=== PATIENT | female | born 1950 | race Caucasian/White ===

== ENCOUNTER → 2017-01-17 | Outpatient (CLI) | payer OTHER ==
[~2017-01-17] MED LIST: CALC500C70 PO; FLUT50SP22 NAE; FOLI1TAB7 PO; HYDR-5688 PO; LACT3000 PO; LEVA45AE INH; LEVO50TA6 PO; LOSA1TAB38 PO; METH2.5T PO; METO25TA3 PO; MTR600XX PO; PLMIN90 INH; PRED10TA PO
[2017-01-17 12:25] LABS: BASO % 0.2 %; BASO ABS # 0.01 K/uL (0-0.2); COMPLETE YES; HEMATOCRIT 38.9 % (37-47); IG% 0.3 %; LYMPH % 28.7 %; LYMPH ABS # 1.88 K/uL (1.2-3.4); MEAN CELL VOLUME 98.7 fL (80-100); MEAN CORPUSCULAR HGB CONC 34.4 g/dl (32-36); MEAN PLATELET VOLUME 9.3 fL (7.4-10.4); MONO % 9.8 %; PLATELET COUNT 364 K/uL (130-400); RED BLOOD COUNT 3.94 M/uL (4.2-5.4); WHITE BLOOD COUNT 6.56 K/uL (4.8-10.8)
[2017-01-17 13:12] LABS: ALT/SGPT 19 U/L (12-78); AST/SGOT 15 U/L (15-37); CREATININE 0.83 mg/dl (0.60-1.20)
[2017-01-17 13:15] LABS: ALKALINE PHOSPHATASE 66 U/L (45-117)
== END | disposition home or self-care (01) ==
LOC: C.LAB1850 11:18
PROVIDERS: ATTEND Internal Medicine Rheumatology
DX: Z51.81 Encounter for therapeutic drug level monitoring (principal); Z79.899 Other long term (current) drug therapy

== ENCOUNTER → 2017-01-19 | Outpatient (CLI) | payer OTHER ==
--- NOTE | 2017-01-19 13:03 | MAMMOGRAPHY REPORT ---
BILATERAL DIGITAL SCREENING MAMMOGRAM WITH CAD: 01/19/2017 CLINICAL HISTORY: Routine screening. Patient has no complaints. TECHNIQUE: Current study was also evaluated with a Computer Aided Detection (CAD) system. Bilatera l CC and MLO views were obtained. COMPARISON: Comparison is made to exams dated: 01/19/2016 mammogram, 01/18/2015 mammogram, 01/19/2014 christopher mogram, 01/19/2014 ultrasound, 01/15/2014 mammogram, and 07/22/2013 mammogram - [facility]. BREAST COMPOSITION: The tissue of both breasts is heterogeneously dense, which may obscure small ma sses. FINDINGS: No suspicious masses, calcifications, or areas of architectural distortion are noted in e ither breast. There has been no significant interval change compared to prior exams. IMPRESSION: ACR BI-RADS CATEGORY 1: NEGATIVE There is no mammographic evidence of malignancy. A 1 year screening mammogram is recommended. The p atient will receive written notification of the results. Approximately 10% of breast cancers are not detected with mammography. A negative mammographic repor t should not delay biopsy if a clinically suggestive mass is present. Isabelle Ying M.D. /:01/19/2017 12:24:28 Sld Inclusion Teacher: Jolie SIMMONS(Kerri)(Isha), [facility] letter sent: Normal 1/2 BI-RADS Code: ACR BI-RADS Category 1: Negative
== END | disposition home or self-care (01) ==
LOC: C.MAMM 09:06
PROVIDERS: ATTEND Obstetrics & Gynecology
DX: Z12.31 Encounter for screening mammogram for malignant neoplasm of breast (principal)

== ENCOUNTER → 2017-01-29 | Outpatient (CLI) | payer OTHER ==
--- NOTE | 2017-01-29 11:57 | DIAGNOSTIC IMAGING REPORT ---
CHEST 2 VIEWS ROUTINE HISTORY: Z20.1 Contact with or exposure to [id number] COMPARISON: Chest 03/16/2016. FINDINGS: The lungs are hyperexpanded with apical predominant emphysematous changes. The heart is normal in size. Slight prominence of interstitial markings which is likely chronic. No new focal lung consolidations. No evidence for pulmonary edema. No pleural effusions. No pneumothorax. IMPRESSION: Emphysema and mild interstitial thickening. No new focal lung consolidations to suggest pneumonia. Electronically signed by: Alban Hodges M.D. 01/29/2017 11:55 AM Dictated Date/Time: 01/29/2017 11:47 AM
== END | disposition home or self-care (01) ==
LOC: C.RAD1850 11:35
PROVIDERS: ATTEND Physician Assistant Medical
DX: Z20.1 Contact with and (suspected) exposure to tuberculosis (principal)

== ENCOUNTER → 2017-02-01 | Outpatient (CLI) | payer OTHER ==
[2017-02-05 15:15] LABS: QUANTIF TB AG-NIL 0.01 IU/ML; QUANTIFERON NIL 0.05 IU/ML
== END | disposition home or self-care (01) ==
LOC: C.LAB1850 14:37
PROVIDERS: ATTEND Physician Assistant Medical
DX: R05 Cough (principal)

== ENCOUNTER → 2017-02-16 | Outpatient (CLI) | payer OTHER ==
--- NOTE | 2017-02-16 08:43 | DIAGNOSTIC IMAGING REPORT ---
LEFT UPPER QUADRANT ULTRASOUND HISTORY: Left upper quadrant tenderness. COMPARISON: None. FINDINGS: The size of the spleen is normal, measuring 9.1 cm in maximal dimension. There is no perisplenic fluid. The left kidney is unremarkable. There is no left hydronephrosis. Sonography of the left upper quadrant at site of maximal pain demonstrated no abnormality. IMPRESSION: No sonographic abnormality within the left upper quadrant. Electronically signed by: Terrence Dominguez M.D. 02/16/2017 8:42 AM Dictated Date/Time: 02/16/2017 8:41 AM
== END | disposition home or self-care (01) ==
LOC: C.ULTR 08:08
PROVIDERS: ATTEND Internal Medicine
DX: R10.812 Left upper quadrant abdominal tenderness (principal)

== ENCOUNTER → 2017-03-16 | Outpatient (CLI) | payer OTHER ==
[2017-03-23 15:16] LABS: O&P SOURCE OTHER-STOOL
== END | disposition home or self-care (01) ==
LOC: C.LAB1850 15:17
PROVIDERS: ATTEND Internal Medicine
DX: R19.4 Change in bowel habit (principal)

== ENCOUNTER → 2017-03-27 | Outpatient (CLI) | payer OTHER | END | disposition home or self-care (01) | LOC: C.LAB1850 14:18 | PROVIDERS: ATTEND Internal Medicine Gastroenterology | DX: R19.7 Diarrhea, unspecified (principal) ==

== ENCOUNTER → 2017-04-19 | Day surgery (SDC) | payer OTHER ==
[2017-04-11 10:04] VITALS: Ht 163.8 cm; Wt 54.5 kg
[~2017-04-19] VITALS: Ht 163.8 cm; Wt 54.5 kg
[~2017-04-19] MED LIST changes: -HYDR-5688 PO; -LACT3000 PO; -PLMIN90 INH
[2017-04-19 11:55] VITALS: BP 156/102; PULSE 75; O2SAT 98
--- NOTE | 2017-04-20 15:41 | Procedure Note ---
Breath Hydrogen Test Interpretation Hydrogen Breath test is positive for lactose intolerance
== END | disposition home or self-care (01) ==
LOC: C.GI 08:01
PROVIDERS: ATTEND Internal Medicine Gastroenterology
DX: E73.9 Lactose intolerance, unspecified (principal)

== ENCOUNTER → 2017-05-22 | Outpatient (CLI) | payer OTHER ==
[2017-05-22 12:36] LABS: BASO % 0.1 %; BASO ABS # 0.01 K/uL (0-0.2); COMPLETE YES; HEMATOCRIT 39.8 % (37-47); IG% 0.4 %; LYMPH % 17.4 %; LYMPH ABS # 1.26 K/uL (1.2-3.4); MEAN CELL VOLUME 100.5 fL (80-100); MEAN CORPUSCULAR HEMOGLOBIN 33.6 pg (25-34); MEAN CORPUSCULAR HGB CONC 33.4 g/dl (32-36); MEAN PLATELET VOLUME 9.2 fL (7.4-10.4); MONO % 7.3 %; NEUT % 74.8 %; PLATELET COUNT 395 K/uL (130-400); RED BLOOD COUNT 3.96 M/uL (4.2-5.4); WHITE BLOOD COUNT 7.23 K/uL (4.8-10.8)
[2017-05-22 13:53] LABS: ALT/SGPT 22 U/L (12-78); AST/SGOT 19 U/L (15-37); BLOOD UREA NITROGEN 13 mg/dl (7-18); BUN/CREATININE RATIO 15.9 (10-20); CALCIUM 9.6 mg/dl (8.5-10.1); CARBON DIOXIDE 27 mmol/L (21-32); CHLORIDE 109 mmol/L (98-107); CHOLESTEROL 157 mg/dl (0-200); CHOLESTEROL/HDL RATIO 2.1; CREATININE 0.81 mg/dl (0.60-1.20); GLUCOSE 93 mg/dl (70-99); HDL CHOLESTEROL 75 mg/dl; POTASSIUM 4.9 mmol/L (3.5-5.1); SODIUM 142 mmol/L (136-145)
[2017-05-22 14:10] LABS: ALB/GLOB RATIO 0.9 (0.9-2); ALKALINE PHOSPHATASE 74 U/L (45-117); LDL CHOLESTEROL CALCULATED 71 mg/dl; TRIGLYCERIDES 53 mg/dl (0-150); VERY LOW DENSITY LIPOPROT CALC 11 mg/dl
[2017-05-23 16:44] LABS: ALBUMIN 3.8 G/DL (3.8-4.8); GAMMA GLOBULIN 1.1 G/DL (0.8-1.7); TOTAL PROTEIN 7.1 G/DL (6.2-8.3)
== END | disposition home or self-care (01) ==
LOC: C.LAB1850 10:36
PROVIDERS: ATTEND Internal Medicine Rheumatology
DX: M06.9 Rheumatoid arthritis, unspecified (principal); Z79.899 Other long term (current) drug therapy; Z79.1 Long term (current) use of non-steroidal anti-inflammatories (NSAID); E55.9 Vitamin D deficiency, unspecified; E03.9 Hypothyroidism, unspecified; R77.8 Other specified abnormalities of plasma proteins

== ENCOUNTER → 2017-07-13 | Outpatient (CLI) | payer OTHER | END | disposition home or self-care (01) | LOC: C.PAPS 09:45 | PROVIDERS: ATTEND Obstetrics & Gynecology | DX: Z12.4 Encounter for screening for malignant neoplasm of cervix (principal) ==

== ENCOUNTER → 2017-07-25 | Outpatient (CLI) | payer OTHER | END | disposition home or self-care (01) | LOC: C.LAB1850 10:43 | PROVIDERS: ATTEND Obstetrics & Gynecology | DX: N83.299 Other ovarian cyst, unspecified side (principal) ==

== ENCOUNTER 2017-08-31 09:29 | Day surgery (SDC) | payer OTHER ==
[2017-08-23 13:57] VITALS: BMI 21.0
--- NOTE | 2017-08-23 14:48 | PAT Medication Instructions ---
Service Date Aug 23, 2017. Current Home Medication List Budesonide (Pulmicort Flexhaler), 2 PUFF INH DAILY PRN for SOB/Wheezing Calcium/Vitamin D (Os-Loco 500 Plus D), 1 TAB PO QPM Fluticasone Propionate (Nasal) ([facility] Fluticasone Propriona), 1 SPRAY RAMILA DAILY PRN for PRN Folic Acid (Folvite), 1 MG PO QAM Ibuprofen (Ibuprofen), 1 TAB PO TID PRN for Pain Lactase (Lactaid), 3 TAB PO DAILY PRN for Diarrhea Levalbuterol Tartrate (Levalbuterol Tartrate Hfa), 2 PUFF INH QID PRN for Shortness of Breath Levalbuterol Tartrate (Levalbuterol Tartrate Hfa), 2 PUFF INH DAILY PRN for SOB/ Wheezing Levothyroxine Sodium (Levothyroxine Sodium), 1 TAB PO QAM Losartan Potassium (Cozaar), 100 MG PO QAM Methotrexate (Methotrexate), 5 MG PO WK Metoprolol Succ (Toprol Xl) (Toprol-Xl), 25 MG PO QAM Prednisone Tab (Prednisone), 10 MG PO DIRECTED PRN for ARTHRITIC PAIN Medication Instructions For Your Scheduled Surgery - Check with residential insurance inspector for instructions: Methotrexate (Methotrexate), 5 MG PO WK - Check with surgeon for instructions: Ibuprofen (Ibuprofen), 1 TAB PO TID PRN for Pain - Hold the following medications the morning of surgery: Losartan Potassium (Cozaar), 100 MG PO QAM Lactase (Lactaid), 3 TAB PO DAILY PRN for Diarrhea Folic Acid (Folvite), 1 MG PO QAM Calcium/Vitamin D (Os-Loco 500 Plus D), 1 TAB PO QPM - Take the following medications the morning of surgery with a sip of water: Prednisone Tab (Prednisone), 10 MG PO DIRECTED PRN for ARTHRITIC PAIN (if needed) Metoprolol Succ (Toprol Xl) (Toprol-Xl), 25 MG PO QAM Levothyroxine Sodium (Levothyroxine Sodium), 1 TAB PO QAM Levalbuterol Tartrate (Levalbuterol Tartrate Hfa), 2 PUFF INH QID PRN for Shortness of Breath (if needed) Levalbuterol Tartrate (Levalbuterol Tartrate Hfa), 2 PUFF INH DAILY PRN for SOB/ Wheezing (if needed) Fluticasone Propionate (Nasal) ([facility]vs Fluticasone Propriona), 1 SPRAY RAMILA DAILY PRN for PRN (if needed) Budesonide (Pulmicort Flexhaler), 2 PUFF INH DAILY PRN for SOB/Wheezing (if needed) - Take the following medications as scheduled the night before surgery: Levalbuterol Tartrate (Levalbuterol Tartrate Hfa), 2 PUFF INH QID PRN for Shortness of Breath (if needed) Levalbuterol Tartrate (Levalbuterol Tartrate Hfa), 2 PUFF INH DAILY PRN for SOB/ Wheezing (if needed) Lactase (Lactaid), 3 TAB PO DAILY PRN for Diarrhea (if needed) Fluticasone Propionate (Nasal) ([facility]vs Fluticasone Propriona), 1 SPRAY RAMILA DAILY PRN for PRN. (if needed) Budesonide (Pulmicort Flexhaler), 2 PUFF INH DAILY PRN for SOB/Wheezing (if needed) If you have any questions please call us at [phone] or [phone] or [phone]
--- NOTE | 2017-08-23 15:58 | DIAGNOSTIC IMAGING REPORT ---
TWO VIEW CHEST CLINICAL HISTORY: Preoperative examination. FINDINGS: PA and lateral chest radiographs are compared to study dated 01/29/2017. The cardiomediastinal silhouette is unremarkable. There is atherosclerotic calcification of the thoracic aorta. Emphysema and chronic interstitial thickening are similar to previous. Thoracic atelectasis versus scarring are present in the right upper lung. No airspace consolidation or pleural effusion is seen. Apical scarring is observed. There is no pneumothorax. The skeletal structures are osteopenic. The bony thorax appears intact. IMPRESSION: Emphysema with no active disease in the chest. Electronically signed by: Addison Blue M.D. 08/23/2017 3:57 PM Dictated Date/Time: 08/23/2017 3:56 PM
[2017-08-23 16:04] LABS: BASO % 0.3 %; BASO ABS # 0.02 K/uL (0-0.2); COMPLETE YES; HEMATOCRIT 40.4 % (37-47); IG% 0.3 %; LYMPH % 23.5 %; LYMPH ABS # 1.62 K/uL (1.2-3.4); MEAN CELL VOLUME 99.5 fL (80-100); MEAN CORPUSCULAR HEMOGLOBIN 33.7 pg (25-34); MEAN CORPUSCULAR HGB CONC 33.9 g/dl (32-36); MEAN PLATELET VOLUME 9.5 fL (7.4-10.4); NEUT % 67.9 %; PLATELET COUNT 326 K/uL (130-400); RED BLOOD COUNT 4.06 M/uL (4.2-5.4)
[2017-08-23 16:21] LABS: BUN/CREATININE RATIO 20.5 (10-20); CALCIUM 9.3 mg/dl (8.5-10.1); CREATININE 0.81 mg/dl (0.60-1.20); POTASSIUM 4.7 mmol/L (3.5-5.1)
--- NOTE | 2017-08-23 16:47 | DIAGNOSTIC IMAGING REPORT ---
CERVICAL SPINE 3 VIEWS CLINICAL HISTORY: Preoperative examination. Rheumatoid arthritis. FINDINGS: Lateral views of the neck in flexion, extension, and the neutral position are obtained. No prior studies are available for comparison at the time of dictation. The skeletal structures are osteopenic. There is no radiographic evidence of fracture on these sagittal views. Vertebral body height is maintained throughout the cervical spine. There is 3 mm of anterolisthesis at C2-C3. Mild retrolisthesis is seen at C3-C4, C4-C5, and C5-C6. This measures up to 4 mm. There is straightening of the cervical lordosis with reversal centered at C4. Arthritic change is seen at the atlantodental articulation. The spinolaminar line appears maintained. There is no significant inducible subluxation on the flexion/extension views. Qskpoywb-tn-fxbzsnli disc space narrowing is seen at C3-C4, C4-C5, and C5-C6 with associated endplate sclerosis. Large posterior disc osteophyte complex is at these levels likely contribute to acquired compromise of the central canal. The spinous processes appear intact. The prevertebral soft tissues are within normal limits. IMPRESSION: 1. Osteopenia with advanced spondylotic change as above. 2. No worsening bony subluxation was suggested on the flexion/extension views. 3. There is no evidence of fracture on these lateral images. Dictated: 08/23/2017 4:40 PM Transcribed: 08/23/2017 4:47 PM Tarik Electronically signed by: Addison Blue M.D. 08/23/2017 4:47 PM Dictated Date/Time: 08/23/2017 4:40 PM
[~2017-08-31] VITALS: Ht 163.8 cm; Wt 55.6 kg
[~2017-08-31 09:29] MED LIST changes: +LACT3000 PO; +LACTATED RINGER'S 1000ML 1,000 ML IV SCH; +PLMIN90 INH
[2017-08-31 10:20] VITALS: BP 141/95; PULSE 89; TEMP 36.8; O2SAT 98; Ht 163.8 cm; Wt 55.6 kg
--- NOTE | 2017-08-31 10:54 | History & Physical Bridge Note ---
H&P Re-Evaluation Bridge Note: I have examined the patient, reviewed the History & Physical and in the interval since the performance of the History & Physical I have noted the following changes of clinical significance: No changes noted
[2017-08-31] MEDS ORDERED: PROPOFOL IV EMULSION 10 MG/ML 20 ML VIAL IV ONE (10:56)
[2017-08-31] MEDS ORDERED: FENTANYL CITRATE INJ 50 MCG/1 ML 2 ML VIAL ONE ×2 (10:56→12:04)
[2017-08-31] MEDS ORDERED: GLYCOPYRROLATE INJ 0.2 MG/ML VIAL ONE (10:56)
[2017-08-31] MEDS ORDERED: DEXAMETHASONE SOD INJ 4 MG/ML VIAL ONE (10:56)
[2017-08-31] MEDS ORDERED: ONDANSETRON INJ 2 MG/ML 2 ML VIAL ONE (10:56)
[2017-08-31] MEDS ORDERED: HYDR-5688 PO (10:56)
[2017-08-31] MEDS ORDERED: NEOSTIGMINE METHYLSULFATE 5 MG/5 ML SYR ONE (10:56)
[2017-08-31] MEDS ORDERED: LIDOCAINE HCL 2% 2 ML VIAL (20MG/ML) ONE (10:56)
--- NOTE | 2017-08-31 10:57 | Discharge Instructions ---
Discharge Instructions Date of Service Aug 31, 2017. Visit Reason for Visit: Complex Ovarian Cyst Discharge Discharge Diagnosis / Problem: Left ovarian cyst Discharge Goals Goal(s): Specific goals Activity Recommendations Activity Limitations: per Instructions/Follow-up section Anesthesia . Post Anesthesia Instructions: If you have had General Anesthesia or IV Sedation: * Do not drive today. * Resume driving when surgeon permits. * Do not make important decisions or sign legal documents today. * Call surgeon for: 1. Temperature elevations greater than 101 degrees F. 2. Uncontrollable pain. 3. Excessive bleeding. 4. Persistent nausea and vomiting. 5. Medication intolerance (nausea, vomiting or rash). * For nausea and vomiting use only clear liquids such as: tea, soda, bouillon until nausea subsides, then gradually increase diet as tolerated. * If you have any concerns or questions, call your surgeon's office. If physician is unavailable and it is an emergency, call 911 or go to the nearest emergency room. . Instructions / Follow-Up Instructions / Follow-Up ACTIVITY RECOMMENDATIONS: * Rest the first 2-3 days. You should be back to your normal activity levels by day 3. * No heavy lifting for 2 weeks. * No intercourse, tampons or douching for 1-2 weeks. * You may shower the next day. * Do not drive anytime that you are taking narcotic pain medicines. RETURN TO SCHOOL/WORK: * May return to school or work after 2-3 days. DIET: Nausea may occur in the immediate post-operative period. If so, take clear liquids such as tea, bouillon, apple juice until all nausea has subsided, then resume usual diet. MEDICATIONS: Resume previous medications unless instructed otherwise by your surgeon. Ibuprofen 200mg 2-3 tablets every 4-6 hours as needed -- OR -- Aleve 2 tablets every 8-12 hours as needed for post-operative discomfort Medications are over the counter. Tylenol may be used if above medications are contraindicated or not preferred. Medication should be taken with food or milk. Do not take on an empty stomach. SPECIAL CARE INSTRUCTIONS: * Check temperature twice daily for one week. report any elevation over 101 degrees. * You may experience some vagina spotting and/or bleeding. This is normal for 1 -2 weeks and should not be heavier than a normal period. If it is unusual in amount, call your physician. * Post-operative discomfort may consist of a sore throat, a "bloated" feeling and pain in the shoulders. these are normal symptoms, which usually only last for 2-3 days. * Remove band-aids tomorrow and shower. There is no need to replace band-aids unless there is drainage or discomfort. FOLLOW UP VISIT: Call your doctor's office for a post-operative 2 week visit if not already scheduled. Diet Recommendations Recommended Home Diet: resume previous diet Pending Studies Studies pending at discharge: no Medical Emergencies . Who to Call and When: Medical Emergencies: If at any time you feel your situation is an emergency, please call 911 immediately. . Non-Emergent Contact Non-Emergency issues call your: Primary Care Provider . . "Provider Documentation" section prepared by Flaquita Maier. . [place] Drug Monitoring Program Search Results: patient reviewed within database, no issues identified
[2017-08-31] MEDS ORDERED: SODIUM CHLORIDE 0.9% 1000ML 1,000 ML IV SCH (11:13)
[2017-08-31] MEDS ORDERED: ATROPINE SULFATE 0.1 MG/ML 5ML SYR IV PRN ×2 (11:15)
[2017-08-31] MEDS ORDERED: IBUPROFEN 600 MG TAB PO PRN (11:15)
[2017-08-31] MEDS ORDERED: HYDROCODONE/ACETAMOPHEN 5/325MG TAB PO PRN ×2 (11:15)
[2017-08-31] MEDS ORDERED: MEPERIDINE HCL 25 MG/ML CARP IV PRN (11:15)
[2017-08-31] MEDS ORDERED: EpHEDrine SULFATE INJ 50 MG/ML AMP IV PRN ×2 (11:15)
[2017-08-31] MEDS ORDERED: LABETALOL HCL IV 5 MG/ML 20ML IV PRN ×2 (11:15)
[2017-08-31] MEDS ORDERED: KETOROLAC TROMETHAMINE 30 MG/ML VIAL IV. PRN (11:15)
[2017-08-31] MEDS ORDERED: MoRPHine SULFATE 10 MG/ML CARP/VIAL IV PRN (11:15)
[2017-08-31] MEDS ORDERED: KETOROLAC TROMETHAMINE 15 MG/ML VIAL IV. PRN (11:15)
[2017-08-31] MEDS ORDERED: ONDANSETRON INJ 2 MG/ML 2 ML VIAL IV PRN ×3 (11:15)
[2017-08-31] MEDS ORDERED: METOCLOPRAMIDE HCL INJ 5 MG/ML 2 ML VIAL IV PRN (11:15)
[2017-08-31] MEDS ORDERED: DEXAMETHASONE SOD INJ 4 MG/ML VIAL IV PRN (11:15)
[2017-08-31] MEDS ORDERED: PROMETHAZINE HCL INJ 25 MG in SODIUM CHLORIDE 0.9% 50ML 50 ML IV PRN (11:15)
[2017-08-31] MEDS ORDERED: PHENYLEPHRINE 100MCG/ML 5ML SYR IV PRN (11:15)
[2017-08-31] MEDS ORDERED: FENTANYL CITRATE INJ 50 MCG/1 ML 2 ML VIAL IV PRN ×2 (11:15)
[2017-08-31] MEDS ORDERED: HYDROmorphone INJ 1 MG/ML SYR IV PRN (11:15)
[2017-08-31] MEDS ORDERED: ROCURONIUM BROMIDE 10 MG/ML 5 ML VIAL IV ONE (12:07)
[2017-08-31] MEDS ORDERED: METHYLENE BLUE 0.5% 10 ML VIAL ONE (13:02)
--- NOTE | 2017-08-31 13:56 | [facility] Post Operative Brief Note ---
Immediate Operative Summary Operative Date Aug 31, 2017. Pre-Operative Diagnosis Complex left ovarian cyst Post-Operative Diagnosis Complex left ovarian cyst, severe pelvic adhesive disease, distortion of anatomy, dilation of ureter on L Procedure(s) Performed DaVinci robot assisted left laparoscopic salpingo-oophorectomy, lysis of adhesion, and cystoscopy Surgeon Dr. Flaquita Maier Broomcorn Seeder Surgeon(s) Dr. Irlanda Santos Estimated Blood Loss 10 ml Findings Severe adhesive disease, dilation of L ureter, mild enlargement of L ovary Specimens A: Left fallopian tube and left ovary Complication(s) None Disposition Recovery Room / PACU
--- NOTE | 2017-08-31 14:22 | Anesthesiology Progress Note ---
Anesthesia Post Op Note Date & Time Aug 31, 2017 at 14:22 Vital Signs Pain Intensity: 5 Vital Signs Past 12 Hours Date Time Temp Pulse Resp B/P (MAP) Pulse Ox O2 Delivery O2 Flow Rate FiO2 08/31/17 14:15 61 14 156/83 97 Room Air 08/31/17 14:05 56 14 159/77 100 Oxymask 3 08/31/17 13:55 69 16 144/75 100 Oxymask 5 08/31/17 13:47 36.1 61 16 173/105 100 Oxymask 10 08/31/17 10:20 36.8 89 18 141/95 (110) 98 Room Air Notes Mental Status: alert / awake / arousable, participated in evaluation Pt Amnestic to Procedure: Yes Nausea / Vomiting: adequately controlled Pain: adequately controlled Airway Patency, RR, SpO2: stable & adequate BP & HR: stable & adequate Hydration State: stable & adequate Anesthetic Complications: no major complications apparent
[2017-08-31 14:26] VITALS: BP 148/98; PULSE 54; TEMP 36.4; O2SAT 98
[2017-08-31 14:56] VITALS: BP 156/82; PULSE 65; O2SAT 98
[2017-08-31 15:26] VITALS: BP 140/80; PULSE 68; TEMP 36.4; O2SAT 99
--- NOTE | 2017-08-31 16:24 | OPERATIVE REPORT ---
DATE OF OPERATION: 08/31/2017 PREOPERATIVE DIAGNOSIS: Complex left ovarian cyst. POSTOPERATIVE DIAGNOSIS: Same. PROCEDURE: Robotic LSO, lysis of adhesions and cystoscopy. SURGEON: Flaquita Maier MD TRIMMING MACHINE OPERATOR: Christian Santos MD ESTIMATED BLOOD LOSS: 10 mL. FINDINGS: Severe adhesive disease throughout the pelvis with distortion of pelvic anatomy, dilation of the left ureter, and mild enlargement of the left ovary. SPECIMENS: Left fallopian tube and ovary. COMPLICATIONS: None. DISPOSITION: Stable to the recovery room. DESCRIPTION: Henrietta is a 66-year-old female with chronic pelvic pain, left worse than right; and findings of an enlarged left ovary with a vascular nodule inside the ovary, notably her CA-125 was normal at 19. The patient wished removal of the left tube and ovary. Additionally, she had encouraged me on several occasions prior to surgery to remove the right tube and ovary as well as she was very concerned about whether there was any benefit to keeping these and particularly whether she might have cancer despite reassurances that, that was unlikely. She was placed on the table in the dorsal lithotomy position with Yellofins stirrups, prepped and draped in standard sterile fashion and a hard time-out was taken prior to proceeding. A Grey catheter was placed along with a single-tooth tenaculum on the cervix as well as an acorn uterine manipulator. Attention was then turned to the abdomen where an optical entry was made just beneath the umbilicus. The abdomen was then insufflated without complication. Right and left lower quadrant ports were then placed under direct visualization. With patient in steep Trendelenburg, it was possible to visualize the pelvic organs after the bowel had been swept away. Of note, the sigmoid was densely adherent over top of the left adnexal structures and this had to be dissected away from the pelvic wall in order to reveal the left tube, ovary and infundibulopelvic ligament as well as the left ureter as it coursed over the pelvic brim. Of note, both ovaries were densely adherent to the pelvic wall. The right ovary was so effaced as to be difficult to separate from the surrounding structures. The left tube was somewhat dilated and also the fimbriated end was trapped in a pocket by adhesive disease such that the fimbriae were actually located between the ovary and the pelvic sidewall and encased in a pocket of adhesive disease. The uterus itself was retroflexed and scarred into the cul-de-sac, making it difficult to elevate the uterus away from the rectum and the rectovaginal pouch of Vicente was nearly obliterated. I called Dr. Santos and asked that he come to the operating room to render an opinion before proceeding with the case any further. My suspicion for malignancy on the left ovary remains low as there were no lesions on the pelvic organs or bowel to suggest metastasis. A survey of the upper abdomen also revealed somewhat thickened appearance of the liver capsule, but no obvious masses in either the right or left upper quadrants. I had concerns about the risk of injury with proceeding with surgery at the same time, I was concerned that the scarring in the pelvis was the cause of patient's generalized pelvic pain and questioning whether removing the left tube and ovary is likely to truly treat her discomfort. Ultimately, we felt that it was best to remove the left ovary given the nodule known to be inside of it, if at all possible. However, deferred removing the right tube, ovary, uterus and cervix; given the extraordinary likelihood of intra-abdominal injury if any approach was made to those at this time. I began by further mobilizing the sigmoid colon to allow the best possible visualization of the IP ligament and the ureter. Unfortunately, the left ureter was grossly dilated and fairly tortuous in its course along the pelvic sidewall, it was noted to be extremely near, in fact butting up against the infundibulopelvic ligament at its point of entry into the pelvis. Additionally, the rectum needed to be freed from the left pelvic sidewall to some degree to allow visualization of the uteroovarian ligament and cornual attachment of the fallopian tube such that these could be ligated and divided. Once the bowel had been sufficiently mobilized away, I decided that the safest place to begin dissection would be to enter the retroperitoneum in the window between the left round ligament and left ovary. A slit was made in the peritoneum and this was opened using a blunt sweeping motion parallel to the adnexa, dissecting downward along the medial leaflet of the broad ligament to reach the dilated ureter which was then seemed to be peristalsing. The infundibulopelvic ligament was resting against the ureter at its point of origin on the pelvic sidewall. Therefore, it had to be grasped, ligated and then divided relatively close to the ovary. Once this was safely accomplished, dissection proceeded beneath the ovary to free it from the pelvic sidewall superior to the course of the ureter at all times and being careful to avoid the lateral pelvic sidewall structures. The fallopian tube was freed in a similar manner. The uteroovarian ligament was then ligated and divided and the fallopian tube was ligated and divided from the uterine cornu. The tube and ovary together were placed in the right portion of the anterior cul-de-sac. Suction irrigation was then used to see hemostasis. Because of some oozing from the pelvic sidewall pouch, an assistant manager quality management port was placed in the left upper quadrant through which a 4 x 4 x-ray sponge was then placed into the abdomen, this was used to apply gentle pressure to the pelvic sidewall, which did successfully stop the oozing. Observation was then undertaken until the ureter was seen to peristalse several times from the pelvic brim down to where it dives below the uterine artery nearing the bladder on the lower left pelvic sidewall. The sponge was then removed from the body. The robot was undocked and using traditional laparoscopy and an EndoCatch bag, the ovary and tube were removed from the body, entirely encased in a bag in fact the sample was relatively small and the bag was able to be extracted through the trocar without any spillage of contents or disruption of the bag. This having been accomplished, cystoscopy was then performed due to the nearness of the left ureter to our working site. A 2.5 mg of methylene blue were administered IV given Henrietta's age and relatively frail status, we started with a small dose. Unfortunately, 15 minutes of observation did not reveal blue dye in the urine. An additional 2.5 mg was given to match the usual 5 mg methylene blue dose. Several minutes thereafter, blue dye was consistently seen to be appearing in urine which was expressed through the left ureter as well as the right ureter by multiple members of staff in the operating room. Once this blue-tinged urine was seen to be consistently spilling, we felt confident the ureter was patent and working normally. The bladder was then drained. Attention was returned to the abdomen. After changing into fresh gloves, whereupon Tisseel was applied across the operative bed, although hemostasis was present prior to applying Tisseel given patient's again frail status, prolonged use of NSAIDs due to her rheumatoid arthritis and just generally out of an abundance of caution the Tisseel was applied. Once Tisseel had been applied to all the working sites, the instruments were all withdrawn. Gas was allowed to escape the abdomen and the belly was closed using UR-6 at the fascial level of the umbilicus and Dermabond dressing at all 4 skin sites. The patient was then awakened, which did go smoothly and she was transferred to the PACU. I did accompany patient to PACU and speak with her briefly there confirming that she was awake, comfortable and had tolerated her procedure well. I attest to the content of the Intraoperative Record and any orders documented therein. Any exception s are noted below.
== END 2017-08-31 16:51 | disposition home or self-care (01) ==
LOC: C.ACU 09:29
PROVIDERS: ATTEND Obstetrics & Gynecology
DX: N83.292 Other ovarian cyst, left side (principal); N73.6 Female pelvic peritoneal adhesions (postinfective); I47.1 Supraventricular tachycardia; I34.0 Nonrheumatic mitral (valve) insufficiency; I10 Essential (primary) hypertension; I73.00 Raynaud's syndrome without gangrene; E03.9 Hypothyroidism, unspecified; J38.00 Paralysis of vocal cords and larynx, unspecified; J45.909 Unspecified asthma, uncomplicated; E73.9 Lactose intolerance, unspecified; E61.8 Deficiency of other specified nutrient elements; E55.9 Vitamin D deficiency, unspecified; R91.8 Other nonspecific abnormal finding of lung field; M06.9 Rheumatoid arthritis, unspecified; M85.80 Other specified disorders of bone density and structure, unspecified site; Z79.1 Long term (current) use of non-steroidal anti-inflammatories (NSAID); Z79.899 Other long term (current) drug therapy
CPT/HCPCS: 58661; S2900

== ENCOUNTER → 2018-01-14 | Outpatient (CLI) | payer OTHER ==
[~2018-01-14] MED LIST changes: -FOLI1TAB7 PO; +FOLI1TAB8 PO; +HYDR-5688 PO; -LACTATED RINGER'S 1000ML 1,000 ML IV SCH
[2018-01-14 16:35] LABS: BASO % 0.3 %; BASO ABS # 0.03 K/uL (0-0.2); HEMATOCRIT 39.4 % (37-47); HEMOGLOBIN 13.3 g/dL (12.0-16.0); IG# 0.01 K/uL (0.00-0.02); LYMPH ABS # 2.24 K/uL (1.2-3.4); MEAN CELL VOLUME 99.5 fL (80-100); MEAN CORPUSCULAR HEMOGLOBIN 33.6 pg (25-34); MEAN CORPUSCULAR HGB CONC 33.8 g/dl (32-36); MEAN PLATELET VOLUME 9.3 fL (7.4-10.4); MONO % 6.5 %; MONO ABS # 0.56 K/uL (0.11-0.59); NEUT % 67.1 %; NEUT ABS # 5.78 K/uL (1.4-6.5); PLATELET COUNT 388 K/uL (130-400); RED CELL DISTRIBUTION WIDTH CV 12.9 % (11.5-14.5); RED CELL DISTRIBUTION WIDTH SD 46.9 fL (36.4-46.3); WHITE BLOOD COUNT 8.62 K/uL (4.8-10.8)
[2018-01-14 17:10] LABS: ALBUMIN 3.8 gm/dl (3.4-5.0); ALT/SGPT 19 U/L (12-78); CREATININE 0.91 mg/dl (0.60-1.20)
[2018-01-14 17:12] LABS: ALKALINE PHOSPHATASE 79 U/L (45-117); AST/SGOT 20 U/L (15-37); TOTAL PROTEIN 7.9 gm/dl (6.4-8.2)
== END | disposition home or self-care (01) ==
LOC: C.LAB1850 15:20
PROVIDERS: ATTEND Internal Medicine Rheumatology
DX: M06.9 Rheumatoid arthritis, unspecified (principal)

== ENCOUNTER → 2018-01-22 | Outpatient (CLI) | payer OTHER ==
--- NOTE | 2018-01-22 15:25 | MAMMOGRAPHY REPORT ---
BILATERAL DIGITAL SCREENING MAMMOGRAM TOMOSYNTHESIS WITH CAD: 01/22/2018 CLINICAL HISTORY: Routine screening. Patient has no complaints. TECHNIQUE: Breast tomosynthesis in addition to standard 2D mammography was performed. Current study was also evaluated with a Computer Aided Detection (CAD) system. COMPARISON: Comparison is made to exams dated: 01/19/2017 mammogram, 01/19/2016 mammogram, 01/18/2015 mamm ogram, 01/19/2014 mammogram, 01/19/2014 ultrasound, and 07/22/2013 mammogram - [facility] BREAST COMPOSITION: The tissue of both breasts is heterogeneously dense, which may obscure small mas ses. FINDINGS: The parenchymal pattern is unchanged. No developing mass, architectural distortion or clus ter of suspicious microcalcifications is seen in either breast. IMPRESSION: ACR BI-RADS CATEGORY 2: BENIGN There is no mammographic evidence of malignancy. A 1 year screening mammogram is recommended. The pa tient will receive written notification of the results. Approximately 10% of breast cancers are not detected with mammography. A negative mammographic report should not delay biopsy if a clinically suggestive mass is present. Yuly Mai M.D. ay/:01/22/2018 14:12:57 Gang Punch Operator: Mala SIMMONS(Kerri)(Isha), [facility] letter sent: Normal 1/2 BI-RADS Code: ACR BI-RADS Category 2: Benign
== END | disposition home or self-care (01) ==
LOC: C.MAMM 09:38
PROVIDERS: ATTEND Obstetrics & Gynecology
DX: Z12.31 Encounter for screening mammogram for malignant neoplasm of breast (principal)

== ENCOUNTER 2018-03-01 10:58 | Emergency (ER) | payer OTHER ==
[~2018-03-01] VITALS: Ht 162.6 cm; Wt 55.0 kg
[2018-03-01 11:02] VITALS: TEMP 36.7; Ht 162.6 cm; Wt 55.0 kg
[2018-03-01 11:10] VITALS: O2SAT 97
[2018-03-01] MEDS ORDERED: SODIUM CHLORIDE 0.9% 1000ML 1,000 ML IV STA (11:16)
--- NOTE | 2018-03-01 11:24 | EMERGENCY ROOM VISIT NOTE ---
History Report prepared by Lakisha: Jose Benson Under the Supervision of: Dr. Demarco Farah M.D. First contact with patient: 11:05 Chief Complaint: TACHYCARDIA Stated Complaint: RAPID HEART RATE History of Present Illness The patient is a 67 year old female who presents to the Emergency Room with complaints of an episode of tachycardia beginning this morning. The patient states that she woke up this morning feeling tired. She notes that she then started feeling like her "heart was going to bounce out of her chest." She reports that she took her blood pressure because of her discomfort and noticed that her heart rate was 180. The patient states that her heart does not feel like it is currently racing. She notes that she had a similar episode two years ago caused by pneumonia. She reports that she was told that she was in SVT and was placed on metoprolol. She also complains of a cough and SOB beginning a week ago. The patient states that she thought that her cough was due to allergies, but notes that her cough is different than a cough one would get with an illness. She denies having a fever, congestion, and leg swelling. She reports that she has not been drinking a lot of fluids for the past week due to her cough. The patient states that she has a history of rheumatoid arthritis but does not have a history of heart attacks and blood clots. She notes that she has a family history of heart attacks at a young age. Source of History: patient Onset: this morning Position: chest Symptom Intensity: heart rate of 180 Quality: other (tachycardia) Timing: other (an episode) Associated Symptoms: + cough, + SOB, No fevers Note: The patient denies any congestion and leg swelling. Review of Systems See HPI for pertinent positives and negatives. A total of ten systems were reviewed and were otherwise negative. Past Medical & Surgical Medical Problems: (1) Pneumonia (2) Rheumatoid arthritis (3) SVT (supraventricular tachycardia) Family History FH: heart attack Social History Smoking Status: Never Smoker Marital Status: Housing Status: lives with family Occupation Status: retired Current/Historical Medications Scheduled Calcium/Vitamin D (Os-Loco 500 Plus D), 1 TAB PO QPM Folic Acid (Folvite), 1 MG PO QAM Levothyroxine Sodium (Levothyroxine Sodium), 1 TAB PO QAM Losartan Potassium (Cozaar), 100 MG PO QAM Methotrexate (Methotrexate), 5 MG PO WK Methylprednisolone (Medrol), 4 MG PO DIRECTED Metoprolol Succ (Toprol Xl) (Toprol-Xl), 25 MG PO QAM Scheduled PRN Budesonide (Pulmicort Flexhaler), 2 PUFF INH DAILY PRN for SOB/Wheezing Fluticasone Propionate (Nasal) (Cvs Fluticasone Propriona), 1 SPRAY RAMILA DAILY PRN for PRN Hydrocodone/Acetaminophen 5MG/325MG ([place] 5MG/325MG), 1 TABLET PO Q6H PRN for Pain Ibuprofen (Ibuprofen), 1 TAB PO TID PRN for Pain Lactase (Lactaid), 3 TAB PO DAILY PRN for Diarrhea Levalbuterol Tartrate (Levalbuterol Tartrate Hfa), 2 PUFF INH QID PRN for Shortness of Breath Allergies Coded Allergies: Penicillins (Verified Allergy, Severe, THROAT CLOSED-REQUIRED TRACH, ) Guaifenesin (Verified Allergy, Unknown, DIARRHEA, 03/01/18) Tramadol (Verified Adverse Reaction, Severe, LIGHTHEADEDNESS, GI, 03/01/18) Chlorhexidine (Verified Adverse Reaction, Intermediate, ITCHING, 03/01/18) Albuterol (Verified Adverse Reaction, Unknown, IRREGULAR HEARTBEAT, ) Dextromethorphan (Verified Adverse Reaction, Unknown, DIARRHEA, 03/01/18) Propoxyphene (Verified Adverse Reaction, Unknown, LIGHTHEADED, 03/01/18) Physical Exam Vital Signs Date Time Temp Pulse Resp B/P (MAP) Pulse Ox O2 Delivery O2 Flow Rate FiO2 03/01/18 14:00 61 16 117/68 95 Room Air 03/01/18 12:23 76 16 120/79 95 Room Air 03/01/18 12:18 77 03/01/18 11:32 77 16 122/81 95 Room Air 03/01/18 11:10 97 Room Air 03/01/18 11:10 97 Room Air 03/01/18 11:02 36.7 169 16 150/97 97 Room Air Physical Exam GENERAL: Awake, alert, fatigued appearing, in no distress HENT: Normocephalic, atraumatic. Mucous membranes dry otherwise oropharynx unremarkable. EYES: Normal conjunctiva. Sclera non-icteric. NECK: Supple. No nuchal rigidity. FROM. No JVD. RESPIRATORY: Clear to auscultation. CARDIAC: Regular rate, normal rhythm. Extremities warm and well perfused. Pulses equal. ABDOMEN: Soft, non-distended. No tenderness to palpation. No rebound or guarding. No masses. RECTAL: Deferred. MUSCULOSKELETAL: Chest examination reveals no tenderness. The back is symmetrical on inspection without obvious abnormality. There is no CVA tenderness to palpation. No joint edema. LOWER EXTREMITIES: Calves are equal size bilaterally and non-tender. No edema. No discoloration. NEURO: Normal sensorium. No sensory or motor deficits noted. SKIN: No rash or jaundice noted. Medical Decision & Procedures ER Provider Diagnostic Interpretation: Radiology results as stated below per my review and radiologist interpretation: CHEST ONE VIEW PORTABLE FINDINGS: The lungs are hyperexpanded with apical predominant emphysematous changes. No pneumothorax. No pleural effusions. Chronic interstitial thickening persists. No new focal lung consolidations to suggest pneumonia. Possible 2 cm nodular density within the right upper lobe. Interstitial thickening at the left lung base is likely chronic. IMPRESSION: 1. No focal lung consolidations to suggest pneumonia. 2. Possible 2 cm nodule within the right upper lobe. Follow-up nonemergent chest CT is recommended to exclude a pulmonary lesion. 3. Emphysema and chronic interstitial thickening persists. Electronically signed by: Alban Hodges M.D. 03/01/2018 12:04 PM Laboratory Results 03/01/18 11:14 Red Blood Count 3.97, Mean Corpuscular Volume 97.2, Mean Corpuscular Hemoglobin 34.3, Mean Corpuscular Hemoglobin Concent 35.2, Mean Platelet Volume 8.8, Neutrophils (%) (Auto) 72.4, Lymphocytes (%) (Auto) 19.0, Monocytes (%) (Auto) 8.0, Eosinophils (%) (Auto) 0.0, Basophils (%) (Auto) 0.2, Neutrophils # (Auto) 6.97, Lymphocytes # (Auto) 1.83, Monocytes # (Auto) 0.77, Eosinophils # (Auto) 0.00, Basophils # (Auto) 0.02 03/01/18 11:14 Test 03/01/18 11:14 White Blood Count 9.63 K/uL (4.8-10.8) Red Blood Count 3.97 M/uL (4.2-5.4) Hemoglobin 13.6 g/dL (12.0-16.0) Hematocrit 38.6 % (37-47) Mean Corpuscular Volume 97.2 fL (80-100) Mean Corpuscular Hemoglobin 34.3 pg (25-34) Mean Corpuscular Hemoglobin Concent 35.2 g/dl (32-36) Platelet Count 340 K/uL (130-400) Mean Platelet Volume 8.8 fL (7.4-10.4) Neutrophils (%) (Auto) 72.4 % Lymphocytes (%) (Auto) 19.0 % Monocytes (%) (Auto) 8.0 % Eosinophils (%) (Auto) 0.0 % Basophils (%) (Auto) 0.2 % Neutrophils # (Auto) 6.97 K/uL (1.4-6.5) Lymphocytes # (Auto) 1.83 K/uL (1.2-3.4) Monocytes # (Auto) 0.77 K/uL (0.11-0.59) Eosinophils # (Auto) 0.00 K/uL (0-0.5) Basophils # (Auto) 0.02 K/uL (0-0.2) RDW Standard Deviation 44.9 fL (36.4-46.3) RDW Coefficient of Variation 12.8 % (11.5-14.5) Immature Granulocyte % (Auto) 0.4 % Immature Granulocyte # (Auto) 0.04 K/uL (0.00-0.02) Anion Gap 6.0 mmol/L (3-11) Est Creatinine Clear Calc Drug Dose 57.6 ml/min Estimated GFR () 85.2 Estimated GFR (Non- 73.5 BUN/Creatinine Ratio 15.7 (10-20) Calcium Level 8.9 mg/dl (8.5-10.1) Phosphorus Level 2.5 mg/dl (2.5-4.9) Magnesium Level 1.7 mg/dl (1.8-2.4) Total Bilirubin 0.4 mg/dl (0.2-1) Direct Bilirubin < 0.1 mg/dl (0-0.2) Aspartate Amino Transf (AST/SGOT) 20 U/L (15-37) Alanine Aminotransferase (ALT/SGPT) 25 U/L (12-78) Alkaline Phosphatase 70 U/L (45-117) Total Protein 7.9 gm/dl (6.4-8.2) Albumin 3.4 gm/dl (3.4-5.0) Lipase 154 U/L (73-393) Thyroid Stimulating Hormone (TSH) 2.540 uIu/ml (0.300-4.500) Laboratory results reviewed by me Medications Administered Medications (Trade) Dose Ordered Sig/Keerthi Route Start Time Stop Time Status Last Admin Dose Admin Sodium Chloride 1,000 ml @ 999 mls/hr Q1H1M STAT IV 03/01/18 11:16 03/01/18 12:16 DC 03/01/18 11:32 999 MLS/HR Magnesium Sulfate (Magnesium Sulfate 1gm / D5W) 2 gm NOW STAT IV 03/01/18 12:35 03/01/18 12:36 DC 03/01/18 12:43 2 GM ECG Per My Interpretation Indication: tachycardia Rate (beats per minute): 160 Rhythm: SVT Findings: no acute ischemic change, other (Normal axis) Change: EKG #2: Normal sinus, 79, normal axis, no acute ischemia. ED Course 1114: The patient was evaluated in room C2. A complete history and physical exam was performed. 1306: I reevaluated the patient and she feels better. Discussed results and discharge instructions: She verbalized understanding and agreement. The patient is ready for discharge. Medical Decision I reviewed the patient's past medical history, medications, and the nursing notes as described above. Differential diagnosis: Etiologies such as premature contractions, electrolyte abnormality, cardiac dysrhythmia, thyroid dysfunction, pulmonary embolism, infection, gastrointestinal, as well as others were entertained. The patient is a 67 y/o woman with a pmhx of prior SVT on Lopressor who presents to the emergency department with episode of palpitations occurring since this morning found to be in SVT on arrival per HPI. On arrival patient was in SVT on EKG but spontaneously converted by the time she was taken back to her ED room and reported resolution of palpitations with subsequent EKG NSR without evidence of ischemia. Otherwise, patient does appear clinically dry and reports drinking less water recently since developing a dry cough with mild congestion 2/2 her seasonal allergies, given that her cough exacerbates her history of stress incontinence, causing her to leak. Magnesium of 1.7 and labs otherwise unremarkable. CXR negative. Patient feeling improved after IVF and magnesium repletion. Continue to remain in NSR throughout ED observation. Given SVT likely provoked by mild dehydration per patient's story, no indication to increase patient's metoprolol at this time. Plan for pcp f/u. Findings and plan for follow-up reviewed with patient. Patient agreeable and d/c'd per discharge instructions. Medication Reconcilliation Current Medication List: was personally reviewed by me Blood Pressure Screening Patient's blood pressure: Normal blood pressure Blood pressure disposition: Did not require urgent referral Impression Primary Impression: SVT (supraventricular tachycardia) Additional Impression: Hypomagnesemia Scribe Attestation The scribe's documentation has been prepared under my direction and personally reviewed by me in its entirety. I confirm that the note above accurately reflects all work, treatment, procedures, and medical decision making performed by me. Departure Information Dispostion Home / Self-Care Referrals RV. Harris MD (PCP) Forms HOME CARE DOCUMENTATION FORM, IMPORTANT VISIT INFORMATION, WORK / SCHOOL INSTRUCTIONS Patient Instructions My [facility], Understanding Supraventricular Tachycardia SVT Additional Instructions Please follow up with your primary care physician in the next 1-3 days for re- evaluation. Your episode of SVT was likely provoked by dehydration and low magnesium. However your SVT resolved without intervention. Otherwise, your exam, EKG, chest xray, and lab results did not show signs of an emergent condition at this time. Drink plenty of fluids to ensure hydration. Return to the emergency department for worsening symptoms as described in the accompanying instructions. Problem Qualifiers
[2018-03-01 11:31] LABS: BASO % 0.2 %; BASO ABS # 0.02 K/uL (0-0.2); HEMATOCRIT 38.6 % (37-47); HEMOGLOBIN 13.6 g/dL (12.0-16.0); IG# 0.04 K/uL (0.00-0.02); LYMPH ABS # 1.83 K/uL (1.2-3.4); MEAN CELL VOLUME 97.2 fL (80-100); MEAN CORPUSCULAR HEMOGLOBIN 34.3 pg (25-34); MEAN CORPUSCULAR HGB CONC 35.2 g/dl (32-36); MEAN PLATELET VOLUME 8.8 fL (7.4-10.4); MONO ABS # 0.77 K/uL (0.11-0.59); NEUT % 72.4 %; NEUT ABS # 6.97 K/uL (1.4-6.5); PLATELET COUNT 340 K/uL (130-400); RED CELL DISTRIBUTION WIDTH CV 12.8 % (11.5-14.5); RED CELL DISTRIBUTION WIDTH SD 44.9 fL (36.4-46.3); WHITE BLOOD COUNT 9.63 K/uL (4.8-10.8)
[2018-03-01 11:49] LABS: ALBUMIN 3.4 gm/dl (3.4-5.0); ALKALINE PHOSPHATASE 70 U/L (45-117); ALT/SGPT 25 U/L (12-78); AST/SGOT 20 U/L (15-37); BLOOD UREA NITROGEN 13 mg/dl (7-18); CALCIUM 8.9 mg/dl (8.5-10.1); CARBON DIOXIDE 28 mmol/L (21-32); CREATININE 0.83 mg/dl (0.60-1.20); GLUCOSE 148 mg/dl (70-99); LIPASE 154 U/L (73-393); PHOSPHORUS 2.5 mg/dl (2.5-4.9); SODIUM 137 mmol/L (136-145); TOTAL PROTEIN 7.9 gm/dl (6.4-8.2)
--- NOTE | 2018-03-01 12:06 | DIAGNOSTIC IMAGING REPORT ---
CHEST ONE VIEW PORTABLE HISTORY: Atypical chest pain. COMPARISON: Chest 08/23/2017. FINDINGS: The lungs are hyperexpanded with apical predominant emphysematous changes. No pneumothorax. No pleural effusions. Chronic interstitial thickening persists. No new focal lung consolidations to suggest pneumonia. Possible 2 cm nodular density within the right upper lobe. Interstitial thickening at the left lung base is likely chronic. IMPRESSION: 1. No focal lung consolidations to suggest pneumonia. 2. Possible 2 cm nodule within the right upper lobe. Follow-up nonemergent chest CT is recommended to exclude a pulmonary lesion. 3. Emphysema and chronic interstitial thickening persists. Electronically signed by: Alban Hodges M.D. 03/01/2018 12:04 PM Dictated Date/Time: 03/01/2018 12:02 PM
[2018-03-01] MEDS ORDERED: MAGNESIUM SULFATE 1GM / D5W 1 GM BAG IV STA (12:35)
[2018-03-01] MEDS ORDERED: METH4TAB31 PO (12:42)
[2018-03-01 14:00] VITALS: BP 117/68; PULSE 61; O2SAT 95
== END 2018-03-01 14:20 | disposition home or self-care (01) ==
LOC: C.EDB 10:59 → C.EDC 14:20
DX: I47.1 Supraventricular tachycardia (principal); E83.42 Hypomagnesemia; Z87.01 Personal history of pneumonia (recurrent); M06.9 Rheumatoid arthritis, unspecified; Z82.49 Family history of ischemic heart disease and other diseases of the circulatory system; Z79.899 Other long term (current) drug therapy; Z88.0 Allergy status to penicillin; Z88.8 Allergy status to other drugs, medicaments and biological substances

== ENCOUNTER → 2018-05-21 | Outpatient (CLI) | payer OTHER ==
[~2018-05-21] MED LIST changes: -HYDR-5688 PO; +METH4TAB31 PO; -PRED10TA PO
[2018-05-21 12:34] LABS: BASO % 0.3 %; BASO ABS # 0.02 K/uL (0-0.2); HEMATOCRIT 39.7 % (37-47); HEMOGLOBIN 13.3 g/dL (12.0-16.0); IG# 0.02 K/uL (0.00-0.02); LYMPH % 24.9 %; LYMPH ABS # 1.66 K/uL (1.2-3.4); MEAN CELL VOLUME 99.3 fL (80-100); MEAN CORPUSCULAR HEMOGLOBIN 33.3 pg (25-34); MEAN CORPUSCULAR HGB CONC 33.5 g/dl (32-36); MEAN PLATELET VOLUME 9.7 fL (7.4-10.4); MONO % 6.3 %; MONO ABS # 0.42 K/uL (0.11-0.59); NEUT % 68.2 %; NEUT ABS # 4.54 K/uL (1.4-6.5); PLATELET COUNT 360 K/uL (130-400); RED CELL DISTRIBUTION WIDTH CV 13.5 % (11.5-14.5); RED CELL DISTRIBUTION WIDTH SD 48.6 fL (36.4-46.3); WHITE BLOOD COUNT 6.66 K/uL (4.8-10.8)
[2018-05-21 13:56] LABS: ALBUMIN 3.9 gm/dl (3.4-5.0); ALKALINE PHOSPHATASE 69 U/L (45-117); ALT/SGPT 21 U/L (12-78); AST/SGOT 21 U/L (15-37); CHOLESTEROL 172 mg/dl (0-200); CREATININE 0.81 mg/dl (0.60-1.20); LDL CHOLESTEROL CALCULATED 69 mg/dl; TOTAL PROTEIN 8.1 gm/dl (6.4-8.2)
== END | disposition home or self-care (01) ==
LOC: C.LAB1850 11:23
PROVIDERS: ATTEND Internal Medicine
DX: E03.9 Hypothyroidism, unspecified (principal); I10 Essential (primary) hypertension; M06.9 Rheumatoid arthritis, unspecified; R29.898 Other symptoms and signs involving the musculoskeletal system; Z79.899 Other long term (current) drug therapy; M85.80 Other specified disorders of bone density and structure, unspecified site; E55.9 Vitamin D deficiency, unspecified; R77.8 Other specified abnormalities of plasma proteins

== ENCOUNTER 2018-05-29 10:26 | Inpatient (IN) | payer OTHER ==
[~2018-05-29] VITALS: Ht 162.6 cm; Wt 53.3 kg
[~2018-05-29 10:26] MED LIST changes: -METH4TAB31 PO
[2018-05-29] MEDS ORDERED: DILTIAZEM BOLUS / DRIP IV STA ×2 (10:43→11:34)
[2018-05-29] MEDS ORDERED: SODIUM CHLORIDE 0.9% 1000ML 1,000 ML IV STA (10:43)
[2018-05-29 10:52] LABS: BASO % 0.3 %; BASO ABS # 0.02 K/uL (0-0.2); HEMATOCRIT 41.4 % (37-47); HEMOGLOBIN 14.4 g/dL (12.0-16.0); IG# 0.02 K/uL (0.00-0.02); LYMPH % 19.3 %; LYMPH ABS # 1.45 K/uL (1.2-3.4); MEAN CELL VOLUME 97.9 fL (80-100); MEAN CORPUSCULAR HGB CONC 34.8 g/dl (32-36); MEAN PLATELET VOLUME 9.1 fL (7.4-10.4); MONO % 7.9 %; MONO ABS # 0.59 K/uL (0.11-0.59); NEUT % 72.2 %; NEUT ABS # 5.42 K/uL (1.4-6.5); PLATELET COUNT 374 K/uL (130-400); RED CELL DISTRIBUTION WIDTH CV 13.2 % (11.5-14.5); RED CELL DISTRIBUTION WIDTH SD 47.1 fL (36.4-46.3)
[2018-05-29] MEDS ORDERED: DILTIAZEM HCL INJ 125 MG in DEXTROSE 5% 100ML IV PRN (11:00)
[2018-05-29] MEDS ORDERED: DILTIAZEM BOLUS FROM BAG IV ONE (11:00)
--- NOTE | 2018-05-29 11:02 | DIAGNOSTIC IMAGING REPORT ---
SINGLE VIEW CHEST CLINICAL HISTORY: Atypical chest pain. FINDINGS: An AP, portable, upright chest radiograph is compared to study dated 03/01/2018 and correlated with chest CT dated 04/08/2018. The examination is degraded by portable technique and patient rotation. The cardiomediastinal silhouette is unremarkable noting atherosclerotic calcification of the thoracic aorta. The lungs are hyperinflated. Chronic interstitial thickening and nodularity is similar to previous. Developing airspace consolidation is identified at the left lung base. Mild bronchiectasis is noted at the lung bases. Apical scarring is observed. No large pleural effusion or pneumothorax is seen. The skeletal structures are osteopenic. The bony thorax is grossly intact. IMPRESSION: 1. There is developing airspace consolidation at the left lung base. Correlate clinically for evidence of pneumonia. Radiographic follow-up to resolution is recommended. 2. Chronic interstitial thickening and nodularity are similar to prior studies and likely represent a chronic infectious/inflammatory process. Electronically signed by: Addison Blue M.D. 05/29/2018 11:01 AM Dictated Date/Time: 05/29/2018 11:00 AM
[2018-05-29 11:21] LABS: BLOOD UREA NITROGEN 11 mg/dl (7-18); CALCIUM 9.1 mg/dl (8.5-10.1); CARBON DIOXIDE 26 mmol/L (21-32); CKMB < 1.0 ng/ml (0.5-3.6); CREATININE 0.94 mg/dl (0.60-1.20); GLUCOSE 141 mg/dl (70-99); POTASSIUM 3.5 mmol/L (3.5-5.1); SODIUM 135 mmol/L (136-145)
[2018-05-29] MEDS ORDERED: DOXY100C76 PO (11:38)
[2018-05-29] MEDS ORDERED: SPRIN INH (11:41)
[2018-05-29] MEDS ORDERED: POLYETHYLENE (MIRALAX) 17 GM PACK PO PRN (11:45)
[2018-05-29] MEDS ORDERED: MoRPHine SULFATE 2 MG/ML CARP IV PRN (11:45)
[2018-05-29] MEDS ORDERED: ONDANSETRON INJ 2 MG/ML 2 ML VIAL IV PRN (11:45)
[2018-05-29] MEDS ORDERED: ALUMINUM/MAGNESIUM/SIMETH (MAALOX MAX) 30 ML UDC PO PRN (11:45)
[2018-05-29] MEDS ORDERED: ACETAMINOPHEN 325 MG TAB PO PRN (11:45)
[2018-05-29] MEDS ORDERED: LEValbuterol HFA 15GM INHALER INH PRN (11:45)
[2018-05-29] MEDS ORDERED: BUDESONIDE 90 MCG INH INH PRN (11:45)
[2018-05-29] MEDS ORDERED: ZOLPIDEM TARTRATE 5 MG TAB PO PRN (11:45)
[2018-05-29] MEDS ORDERED: MAGNESIUM HYDROXIDE SUSP 30 ML UDC PO PRN (11:45)
[2018-05-29 11:57] VITALS: O2SAT 100; Ht 162.6 cm; Wt 53.3 kg
[2018-05-29] MEDS ORDERED: LEVOTHYROXINE 50 MCG TAB PO SCH (12:15)
--- NOTE | 2018-05-29 12:26 | History and Physical ---
History & Physical Date & Time of Service: May 29, 2018 at 12:05 Chief Complaint: Rapid Heart Beat,High Bp Primary Care Physician: No Doctor, Assigned History of Present Illness Source: patient, hospital records, other 67 y/o F Hx RA, rheumatoid lung disease, HTN, hypothyroid, 2 episodes of SVT ( 2015,2017). Developed a sore throat, congestion and felt generally unwell the past 3 days. On the day of admission she developed a racing HR and presented to the ER therefore. The pt denies CP, SOB or lightheadedness. AF with a rate of 140-150 was confirmed on arrival to the hospital. 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 She had called her skilled trades teacher 3 days ago at the onset of her symptoms and was placed on a course of Doxycycline. She states she was not able to tolerate the medication however and tended to vomit directly after taking it. Past Medical/Surgical History 1) HTN 2) RA 3) Rheumatoid lung disease 4) Hypothyroid 5) SVT x - 2017 and 02/2018 6) AF 05/2018 Family History FH: heart attack Mother due to [place] Father due to pancreatic CA Brother with AF Social History Drinks a glass of wine daily - no smoking history Smoking Status: Never Smoker Marital Status: Occupational Status: retired Allergies Coded Allergies: Penicillins (Verified Allergy, Severe, THROAT CLOSED-REQUIRED TRACH, ) Guaifenesin (Verified Allergy, Unknown, DIARRHEA, 05/29/18) Tramadol (Verified Adverse Reaction, Severe, LIGHTHEADEDNESS, GI, 05/29/18) Chlorhexidine (Verified Adverse Reaction, Intermediate, ITCHING, 05/29/18) Albuterol (Verified Adverse Reaction, Unknown, IRREGULAR HEARTBEAT, ) Dextromethorphan (Verified Adverse Reaction, Unknown, DIARRHEA, 05/29/18) Propoxyphene (Verified Adverse Reaction, Unknown, LIGHTHEADED, 05/29/18) Home Medications Scheduled Calcium/Vitamin D (Os-Loco 500 Plus D), 1 TAB PO QPM Doxycycline Monohydrate (Monodox), 200 MG PO BID Folic Acid (Folvite), 1 MG PO QAM Levothyroxine Sodium (Levothyroxine Sodium), 50 MCG PO QAM Losartan Potassium (Cozaar), 100 MG PO QAM Methotrexate (Methotrexate), 5 MG PO WK Metoprolol Succ (Toprol Xl) (Toprol-Xl), 25 MG PO QAM Scheduled PRN Fluticasone Propionate (Nasal) (Cvs Fluticasone Propriona), 1 SPRAY RAMILA DAILY PRN for PRN Ibuprofen (Ibuprofen), 600 MG PO TID PRN for Pain Methylprednisolone (Medrol), 4 MG PO DIRECTED PRN for PRN Tiotropium [place] (Spiriva Handihaler), 2 PUFF INH DAILY PRN for SOB/Wheezing Review of Systems Constitutional: No fever, No chills, No sweats Eyes: No worsening of vision ENT: + nasal symptoms, + sore throat, No hearing loss, No unusual epistaxis Respiratory: No cough, No sputum, No wheezing Cardiovascular: + palpitations, No chest pain, No orthopnea, No PND Abdomen: + nausea, + vomiting (After taking Doxycycline ), No pain Musculoskeletal: No joint pain Genitourinary - Female: No dysuria, No urinary frequency Neurologic: No memory loss, No paralysis, No weakness Psychiatric: No depression symptoms Endocrine: No fatigue Hematologic / Lymphatic: No abnormal bleeding/bruising Integumentary: No rash Physical Exam Vital Signs Date Time Temp Pulse Resp B/P (MAP) Pulse Ox O2 Delivery O2 Flow Rate FiO2 05/29/18 10:46 137 16 138/114 100 Room Air 05/29/18 10:46 130 05/29/18 10:43 98 Room Air 05/29/18 10:33 98 Room Air 05/29/18 10:28 36.3 142 20 153/107 96 Room Air General Appearance: WD/WN Head: normocephalic Eyes: normal inspection ENT: normal ENT inspection, pharynx normal Neck: supple, no JVD Respiratory/Chest: chest non-tender, lungs clear, normal breath sounds Cardiovascular: no edema, + irregularly irregular Abdomen/GI: normal bowel sounds, non tender, soft Back: normal inspection, no CVA tenderness Extremities/Musculoskelatal: normal inspection, no calf tenderness, normal capillary refill Neurologic/Psych: professor of fine art II-XII nml as tested, no motor/sensory deficits, alert, oriented x 3 Skin: normal color Diagnostics Laboratory Results Results Past 24 Hours Test 05/29/18 10:40 Range/Units White Blood Count 7.50 4.8-10.8 K/uL Red Blood Count 4.23 4.2-5.4 M/uL Hemoglobin 14.4 12.0-16.0 g/dL Hematocrit 41.4 37-47 % Mean Corpuscular Volume 97.9 80-100 fL Mean Corpuscular Hemoglobin 34.0 25-34 pg Mean Corpuscular Hemoglobin Concent 34.8 32-36 g/dl Platelet Count 374 130-400 K/uL Mean Platelet Volume 9.1 7.4-10.4 fL Neutrophils (%) (Auto) 72.2 % Lymphocytes (%) (Auto) 19.3 % Monocytes (%) (Auto) 7.9 % Eosinophils (%) (Auto) 0.0 % Basophils (%) (Auto) 0.3 % Neutrophils # (Auto) 5.42 1.4-6.5 K/uL Lymphocytes # (Auto) 1.45 1.2-3.4 K/uL Monocytes # (Auto) 0.59 0.11-0.59 K/uL Eosinophils # (Auto) 0.00 0-0.5 K/uL Basophils # (Auto) 0.02 0-0.2 K/uL RDW Standard Deviation 47.1 36.4-46.3 fL RDW Coefficient of Variation 13.2 11.5-14.5 % Immature Granulocyte % (Auto) 0.3 % Immature Granulocyte # (Auto) 0.02 0.00-0.02 K/uL Sodium Level 135 136-145 mmol/L Potassium Level 3.5 3.5-5.1 mmol/L Chloride Level 102 98-107 mmol/L Carbon Dioxide Level 26 21-32 mmol/L Anion Gap 7.0 3-11 mmol/L Blood Urea Nitrogen 11 7-18 mg/dl Creatinine 0.94 0.60-1.20 mg/dl Est Creatinine Clear Calc Drug Dose 50.3 ml/min Estimated GFR () 73.3 Estimated GFR (Non- 63.2 BUN/Creatinine Ratio 11.6 10-20 Random Glucose 141 70-99 mg/dl Calcium Level 9.1 8.5-10.1 mg/dl Total Creatine Kinase 48 26-192 U/L Creatine Kinase MB < 1.0 0.5-3.6 ng/ml Creatine Kinase MB Ratio 0-3.0 Troponin I < 0.015 0-0.045 ng/ml EKG AF/RVR 140BPM Impression Assessment and Plan 67 y/o F Hx RA, rheumatoid lung disease, HTN, hypothyroid, 2 episodes of SVT ( 2016,2018). Developed a sore throat, congestion and felt generally unwell the past 3 days. On the day of admission she developed a racing HR and presented to the ER therefore. The pt denies CP, SOB or lightheadedness. AF with a rate of 140-150 was confirmed on arrival to the hospital. 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 She had called her skilled trades teacher 3 days ago at the onset of her symptoms and was placed on a course of Doxycycline. She states she was not able to tolerate the medication however and tended to vomit directly after taking it. 1) AF - placed on Cardizem and BID Lovenox. We will obtain an echo which would evaluate for pulmonary HTN in context of her lung disease. A cardiology consult is requested to discuss long-term anticoagulation. A recent TSH is WNL. 2) HTN - we will cont daily Toprol as tolerated. Losartan has been held to allow for flexibility with rate agents. 3) Sore throat, congestion. No clear evidence of bacterial infection - she has not tolerated her Doxy. We will obtain a strep culture and can discuss alternate antibiotics with her MD upon DC if needed. 4) Hypothyroidism - cont Synthroid 5) RA - she takes MTX weekly so that presumably her lung disease is not related to use. Can f/u as outpt. Full code - Full-dose Lovenox Total time for this admit including review of labs, meds, imaging, records - discussion with pt and ER attending - 37 min Advanced Directives Existing Living Will: Yes Existing Power of Application Security Engineer: Yes Resuscitation Status VTE Prophylaxis Will order VTE Prophylaxis: Yes
[2018-05-29] MEDS ORDERED: METH4TAB31 PO (12:42)
[2018-05-29 13:10] VITALS: BP 132/89; PULSE 69; TEMP 36.4; O2SAT 97
[2018-05-29 14:36] LABS: PTT PATIENT 27.6 SECONDS (21.0-31.0)
[2018-05-29 14:50] VITALS: BP 129/80; PULSE 69; TEMP 37; O2SAT 96
[2018-05-29] MEDS: ENOXAPARIN 60 MG/0.6 ML SYR SQ SCH ×2 (15:18→23:08)
--- NOTE | 2018-05-29 16:49 | EMERGENCY ROOM VISIT NOTE ---
History Report prepared by Lakisha: Esther Andrews Under the Supervision of: Dr. Joshua Marino D.O. 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 She states that 3 days ago, she was in [place] and [facility] when she had a sudden onset of a feeling of "unwellness " and she lost her voice. She then began coughing and her ears became plugged. She called Dr. Dejesus [facility] yesterday and he placed her on Doxycycline. This morning, the patient states she woke up with a feeling of unwellness again so she took her blood pressure and it was 177 which concerned her so she came to the ED. She states she felt her heart racing this morning as well as a flutter but denies any chest pain. Pt states she has a history of pulmonary nodules and had a colonization staph infection in August. She has had SVT twice in the past and regularly takes Metoprolol. 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 A total of 10 systems reviewed and were otherwise negative. Past Medical & Surgical Medical Problems: (1) Pneumonia (2) Rapid atrial fibrillation (3) Rheumatoid arthritis (4) SVT (supraventricular tachycardia) Family History FH: heart attack Social History Smoking Status: Never Smoker Marital Status: Housing Status: lives with family Occupation Status: retired Current/Historical Medications Scheduled Calcium/Vitamin D (Os-Loco 500 Plus D), 1 TAB PO QPM Doxycycline Monohydrate (Monodox), 200 MG PO BID Folic Acid (Folvite), 1 MG PO QAM Levothyroxine Sodium (Levothyroxine Sodium), 50 MCG PO QAM Losartan Potassium (Cozaar), 100 MG PO QAM Methotrexate (Methotrexate), 5 MG PO WK Metoprolol Succ (Toprol Xl) (Toprol-Xl), 25 MG PO QAM Scheduled PRN Fluticasone Propionate (Nasal) (Cvs Fluticasone Propriona), 1 SPRAY RAMILA DAILY PRN for PRN Ibuprofen (Ibuprofen), 600 MG PO TID PRN for Pain Methylprednisolone (Medrol), 4 MG PO DIRECTED PRN for PRN Tiotropium [place] (Spiriva Handihaler), 2 PUFF INH DAILY PRN for SOB/Wheezing Allergies Coded Allergies: Penicillins (Verified Allergy, Severe, THROAT CLOSED-REQUIRED TRACH, ) Guaifenesin (Verified Allergy, Unknown, DIARRHEA, 05/29/18) Tramadol (Verified Adverse Reaction, Severe, LIGHTHEADEDNESS, GI, 05/29/18) Chlorhexidine (Verified Adverse Reaction, Intermediate, ITCHING, 05/29/18) Albuterol (Verified Adverse Reaction, Unknown, IRREGULAR HEARTBEAT, ) Dextromethorphan (Verified Adverse Reaction, Unknown, DIARRHEA, 05/29/18) Propoxyphene (Verified Adverse Reaction, Unknown, LIGHTHEADED, 05/29/18) Physical Exam Vital Signs Date Time Temp Pulse Resp B/P (MAP) Pulse Ox O2 Delivery O2 Flow Rate FiO2 05/29/18 10:46 137 16 138/114 100 Room Air 05/29/18 10:46 130 05/29/18 10:43 98 Room Air 05/29/18 10:33 98 Room Air 05/29/18 10:28 36.3 142 20 153/107 96 Room Air Physical Exam GENERAL: Sitting up in bed, alert, well appearing, well nourished, no distress, non-toxic EYE EXAM: normal conjunctiva. OROPHARYNX: no exudate, no erythema, lips, buccal mucosa, and tongue normal and mucous membranes are moist NECK: supple, no nuchal rigidity, no adenopathy, non-tender LUNGS: Clear to auscultation. Normal chest wall mechanics HEART: tachycardic and irregularly irregular, S1 normal and S2 normal ABDOMEN: abdomen soft, non-tender, normo-active bowel sounds, no masses, no rebound or guarding. BACK: Back is symmetrical on inspection and there is no deformity, no midline tenderness, no CVA tenderness. SKIN: no rashes and no bruising UPPER EXTREMITIES: upper extremities are grossly normal. LOWER EXTREMITIES: No pitting edema. NEURO EXAM: Normal sensorium, cranial nerves II-XII grossly intact, normal speech, no gross weakness of arms, no gross weakness of legs. Medical Decision & Procedures ER Provider Diagnostic Interpretation: Radiology results as stated below per my review and the radiologist's interpretation: SINGLE VIEW CHEST CLINICAL HISTORY: Atypical chest pain. FINDINGS: An AP, portable, upright chest radiograph is compared to study dated 03/01/2018 and correlated with chest CT dated 04/08/2018. The examination is degraded by portable technique and patient rotation. The cardiomediastinal silhouette is unremarkable noting atherosclerotic calcification of the thoracic aorta. The lungs are hyperinflated. Chronic interstitial thickening and nodularity is similar to previous. Developing airspace consolidation is identified at the left lung base. Mild bronchiectasis is noted at the lung bases. Apical scarring is observed. No large pleural effusion or pneumothorax is seen. The skeletal structures are osteopenic. The bony thorax is grossly intact. IMPRESSION: 1. There is developing airspace consolidation at the left lung base. Correlate clinically for evidence of pneumonia. Radiographic follow-up to resolution is recommended. 2. Chronic interstitial thickening and nodularity are similar to prior studies and likely represent a chronic infectious/inflammatory process. Electronically signed by: Addison Blue M.D. 05/29/2018 11:01 AM Laboratory Results 05/29/18 10:40 Red Blood Count 4.23, Mean Corpuscular Volume 97.9, Mean Corpuscular Hemoglobin 34.0, Mean Corpuscular Hemoglobin Concent 34.8, Mean Platelet Volume 9.1, Neutrophils (%) (Auto) 72.2, Lymphocytes (%) (Auto) 19.3, Monocytes (%) (Auto) 7.9, Eosinophils (%) (Auto) 0.0, Basophils (%) (Auto) 0.3, Neutrophils # (Auto) 5.42, Lymphocytes # (Auto) 1.45, Monocytes # (Auto) 0.59, Eosinophils # (Auto) 0.00, Basophils # (Auto) 0.02 05/29/18 10:40 Test 05/29/18 10:40 White Blood Count 7.50 K/uL (4.8-10.8) Red Blood Count 4.23 M/uL (4.2-5.4) Hemoglobin 14.4 g/dL (12.0-16.0) Hematocrit 41.4 % (37-47) Mean Corpuscular Volume 97.9 fL (80-100) Mean Corpuscular Hemoglobin 34.0 pg (25-34) Mean Corpuscular Hemoglobin Concent 34.8 g/dl (32-36) Platelet Count 374 K/uL (130-400) Mean Platelet Volume 9.1 fL (7.4-10.4) Neutrophils (%) (Auto) 72.2 % Lymphocytes (%) (Auto) 19.3 % Monocytes (%) (Auto) 7.9 % Eosinophils (%) (Auto) 0.0 % Basophils (%) (Auto) 0.3 % Neutrophils # (Auto) 5.42 K/uL (1.4-6.5) Lymphocytes # (Auto) 1.45 K/uL (1.2-3.4) Monocytes # (Auto) 0.59 K/uL (0.11-0.59) Eosinophils # (Auto) 0.00 K/uL (0-0.5) Basophils # (Auto) 0.02 K/uL (0-0.2) RDW Standard Deviation 47.1 fL (36.4-46.3) RDW Coefficient of Variation 13.2 % (11.5-14.5) Immature Granulocyte % (Auto) 0.3 % Immature Granulocyte # (Auto) 0.02 K/uL (0.00-0.02) Anion Gap 7.0 mmol/L (3-11) Est Creatinine Clear Calc Drug Dose 50.3 ml/min Estimated GFR () 73.3 Estimated GFR (Non- 63.2 BUN/Creatinine Ratio 11.6 (10-20) Calcium Level 9.1 mg/dl (8.5-10.1) Total Creatine Kinase 48 U/L (26-192) Creatine Kinase MB < 1.0 ng/ml (0.5-3.6) Creatine Kinase MB Ratio (0-3.0) Troponin I < 0.015 ng/ml (0-0.045) Hepatitis C Antibody Screen NEG (NEG) Laboratory results per my review. Medications Administered Medications (Trade) Dose Ordered Sig/Keerthi Route Start Time Stop Time Status Last Admin Dose Admin Sodium Chloride 1,000 ml @ 999 mls/hr Q1H1M STAT IV 05/29/18 10:43 05/29/18 11:43 DC 05/29/18 11:02 999 MLS/HR Diltiazem HCl 125 mg/Dextrose 125 ml @ 0 mls/hr Q0M PRN IV 05/29/18 11:00 06/28/18 10:59 05/29/18 11:01 5 MLS/HR Diltiazem HCl (Cardizem Bolus From Bag) 10 mg ONE ONCE IV 05/29/18 11:00 05/29/18 11:01 DC 05/29/18 11:01 10 MG ECG Per My Interpretation Indication: tachycardia Rate (beats per minute): 125 Rhythm: atrial fibrillation (with RVR) Findings: ST depression (Lateral), other (normal axis) ED Course ED COURSE: Vital signs were reviewed and showed Tachy and hypertensive situationally The patients medical record was reviewed The above diagnostic studies were performed and reviewed. ED treatments and interventions as stated above. 1034: The patient was evaluated in room C10. A complete history and physical examination was performed. 1043: Ordered Sodium Chloride 1000 ml @ 999 mls/hr IV 1100: Ordered Cardizem Bolus From Bag 10 mg IV, Diltiazem HCl 125 mg/Dextrose 1131: I reviewed the patient's case with Dr. Naylor, [facility] Hospitalist. He will evaluate the patient for further management. 1134: Upon reevaluation, the patient is resting comfortably. I discussed my findings with the patient and she understands and agrees with the treatment plan. Based on the patients age, coexisting illnesses, exam and lab findings the decision to treat as an inpatient was made. The patient remained stable while under my care. The patient will be evaluated for further management. Medical Decision Differential diagnoses includes but is not limited to acute coronary syndrome, myocardial infarction, pericarditis, pulmonary embolus, aortic dissection, pneumonia, pneumothorax, musculoskeletal, shingles, esophageal. Patient is a 67-year-old female who presents the ER for cough congestion and feeling very weak. She notes she has intermittently felt her heart racing. Upon arrival heart rate is in the 140s. EKG shows an atrial fib with RVR. There is ST depressions in the lateral leads. Patient was updated in regards to her findings at bedside. She does take a beta-jitendra intermittently at home secondary to SVT. CBC along with BMP and troponin were negative. Chest x- ray unremarkable. Patient was placed on the monitor upon arrival he was given a Cardizem bolus and placed on Cardizem drip. The drip was titrated up to 10. Heart rate remained from 110 to high 90s. Patient had no other complaints while in the ER. Discussed with the hospitalist patient was admitted for A. fib with RVR on a Cardizem drip. Medication Reconcilliation Current Medication List: was personally reviewed by me Blood Pressure Screening Patient's blood pressure: Elevated blood pressure Blood pressure disposition: Elevated BP felt to be situational Consults Time Called: 1129 Consulting Physician: Dr. Naylor [facility] Hospitalist Returned Call: 1131 I reviewed the patient's case with Dr. Naylor [facility] Hospitalist. He will evaluate the patient for further management. Impression Primary Impression: Atrial fibrillation with RVR Critical Care I have personally spent 35 minutes of critical care time in the direct management of this patient. This includes bedside care, interpretation of diagnostic studies, and testing, discussion with consultants, patient, and family members, and other required patient management activities. This 35 minutes is in excess of all separately billable procedures. Scribe Attestation The scribe's documentation has been prepared under my direction and personally reviewed by me in its entirety. I confirm that the note above accurately reflects all work, treatment, procedures, and medical decision making performed by me. Departure Information Dispostion Being Evaluated By Hospitalist (Dr. Naylor [facility] Hospitalist) Referrals RV. Harris MD (PCP) Patient Instructions My [facility]
--- NOTE | 2018-05-29 17:26 | ECHOCARDIOGRAM REPORT ---
*NOTICE TO RECEIVING DEMOCRAT AGENCY This information is strictly Confidential and protected under [place] law. [place] law prohibits you from making any further disclosure of this information unless further disclosure is expressly permitted by the written consent of the person to whom it pertains or is authorized by law. A general authorization for the release of medical or other information is not sufficient for this purpose. Hospital accepts no responsibility if the information is made available to any other person, INCLUDING THE PATIENT. Interpretation Summary * Name: TRINIDAD HARVEY Study Date: 05/29/2018 03:27 PM BP: 138/114 mmHg * Patient Location: C.2T\S\E218\S\1 HR: 137 * : 1950 (M/d/yyyy) Gender: Female Height: 64 in * Age: 67 yrs Ethnicity: [place] Weight: 119 lb * Ordering Physician: Jason Naylor * Referring Physician: Self, Referred * Performed By: Donita Barth RDCS * * Reason For Study: Palpitations * BSA: 1.6 m2 * -- Conclusions -- * Left ventricular systolic function is normal. * Normal diastolic function * Right ventricular systolic pressure is normal. Procedure Details * A complete two-dimensional transthoracic echocardiogram was performed (2D, M-mode, Doppler and color flow Doppler). Left Ventricle * The left ventricle is normal in size. * There is normal left ventricular wall thickness. * Ejection Fraction = 60-65%. * Left ventricular systolic function is normal. * Normal diastolic function * The left ventricular wall motion is normal. Right Ventricle * The right ventricle is normal in size and function. Atria * The left atrial size is normal. * Right atrial size is normal. Mitral Valve * The mitral valve leaflets appear normal. There is no evidence of stenosis, fluttering, or prolapse. * There is trace mitral regurgitation. Tricuspid Valve * The tricuspid valve anatomy is normal. * There is trace tricuspid regurgitation. * Right ventricular systolic pressure is normal. Aortic Valve * The aortic valve is normal in structure and function. * The aortic valve is trileaflet. * No hemodynamically significant valvular aortic stenosis. * There is no significant aortic regurgitation. Pulmonic Valve * The pulmonic valve is not well seen, but is grossly normal. * Mild pulmonic valvular regurgitation. Great Vessels * The aortic root is normal size. Pericardium/Pleural * There is no pericardial effusion. MMode 2D Measurements and Calculations IVSd 1.0 cm LVIDd 4.0 cm LVIDs 2.6 cm LVPWd 1.0 cm IVS/LVPW 1.0 FS 32.9 % EDV(Teich) 68.0 ml ESV(Teich) 25.8 ml EF(Teich) 62.1 % EDV(cubed) 61.7 ml ESV(cubed) 18.6 ml EF(cubed) 69.8 % LV mass(C)d 127.5 grams LV mass(C)dI 81.3 grams/m\S\2 SV(Teich) 42.2 ml SI(Teich) 26.9 ml/m\S\2 SV(cubed) 43.1 ml SI(cubed) 27.5 ml/m\S\2 Ao root diam 3.3 cm Ao root area 8.7 cm\S\2 ACS 1.6 cm LA dimension 3.1 cm asc Aorta Diam 2.7 cm LA/Ao 0.92 LVOT diam 1.8 cm LVOT area 2.6 cm\S\2 LVAd ap4 25.1 cm\S\2 LVLd ap4 7.2 cm EDV(MOD-sp4) 71.5 ml EDV(sp4-el) 75.0 ml LVAs ap4 13.9 cm\S\2 LVLs ap4 6.1 cm ESV(MOD-sp4) 25.9 ml ESV(sp4-el) 26.9 ml EF(MOD-sp4) 63.7 % EF(sp4-el) 64.2 % LVAd ap2 25.1 cm\S\2 LVLd ap2 7.2 cm EDV(MOD-sp2) 72.9 ml EDV(sp2-el) 74.1 ml LVAs ap2 13.2 cm\S\2 LVLs ap2 6.0 cm ESV(MOD-sp2) 24.6 ml ESV(sp2-el) 24.3 ml EF(MOD-sp2) 66.3 % EF(sp2-el) 67.2 % LVLd %diff 0.63 % EDV(MOD-bp) 71.5 ml LVLs %diff -1.25 % ESV(MOD-bp) 25.0 ml EF(MOD-bp) 65.0 % SV(MOD-sp4) 45.5 ml SI(MOD-sp4) 29.0 ml/m\S\2 SV(MOD-sp2) 48.3 ml SI(MOD-sp2) 30.8 ml/m\S\2 SV(MOD-bp) 46.5 ml SI(MOD-bp) 29.6 ml/m\S\2 SV(sp4-el) 48.2 ml SI(sp4-el) 30.7 ml/m\S\2 SV(sp2-el) 49.8 ml SI(sp2-el) 31.8 ml/m\S\2 Doppler Measurements and Calculations MV E max nidia 70.1 cm/sec MV A max nidia 66.9 cm/sec MV E/A 1.0 MV dec time 0.19 sec Ao V2 max 111.3 cm/sec Ao max PG 5.0 mmHg Ao max PG (full) -0.22 mmHg SHALONDA(V,A) 2.7 cm\S\2 SHALONDA(V,D) 2.7 cm\S\2 LV V1 max PG 5.2 mmHg LV V1 max 113.8 cm/sec PA V2 max 74.2 cm/sec PA max PG 2.2 mmHg PA acc slope 278.5 cm/sec\S\2 PA acc time 0.21 sec PI max nidia 142.4 cm/sec PI max PG 8.1 mmHg PI dec slope 61.5 cm/sec\S\2 PI P1/2t 677.6 msec TR max nidia 147.0 cm/sec PA pr(Accel) -16.83 mmHg
[2018-05-29 19:06] VITALS: BP 130/86; PULSE 69; TEMP 36.4; O2SAT 97
[2018-05-29 20:00] VITALS: O2SAT 97
[2018-05-29] MEDS ORDERED: CALCIUM 600MG + VIT D 400 IU TAB PO SCH (21:00)
[2018-05-29 22:57] VITALS: BP 153/99; PULSE 72; TEMP 36.9; O2SAT 97
[2018-05-30] VITALS (9 sets, daily range): BP systolic 100–169; BP diastolic 66–119; PULSE 69–165; TEMP 36.6–37.1; O2SAT 96–97
[2018-05-30] MEDS ORDERED: LEVOTHYROXINE 50 MCG TAB PO SCH ×3 (06:00→09:00)
[2018-05-30 06:44] LABS: HEMATOCRIT 37.7 % (37-47); HEMOGLOBIN 12.7 g/dL (12.0-16.0); MEAN CELL VOLUME 98.4 fL (80-100); MEAN CORPUSCULAR HEMOGLOBIN 33.2 pg (25-34); MEAN CORPUSCULAR HGB CONC 33.7 g/dl (32-36); MEAN PLATELET VOLUME 8.7 fL (7.4-10.4); PLATELET COUNT 354 K/uL (130-400); RED CELL DISTRIBUTION WIDTH SD 46.7 fL (36.4-46.3); WHITE BLOOD COUNT 5.64 K/uL (4.8-10.8)
[2018-05-30 07:17] LABS: CREATININE 0.77 mg/dl (0.60-1.20)
[2018-05-30] MEDS ORDERED: METOPROLOL SUCC 25MG EXT REL TAB PO SCH (09:00)
[2018-05-30] MEDS ORDERED: METHYLPREDNISOLONE 4 MG TAB PO SCH (09:00)
[2018-05-30] MEDS ORDERED: MAGNESIUM SULFATE 1GM / D5W 100 ML IV ONE (09:00)
[2018-05-30] MEDS ORDERED: LOSARTAN POTASSIUM 50 MG TAB PO ONE (09:15)
[2018-05-30] MEDS: ENOXAPARIN 60 MG/0.6 ML SYR SQ SCH (10:16)
[2018-05-30] MEDS ORDERED: ADENOSINE IV SOLN 3 MG/ML 2 ML VIAL ONE ×2 (12:22→12:24)
--- NOTE | 2018-05-30 13:28 | Cardiology Consultation ---
Cardiology Consultation Date of Consultation: May 30, 2018. Requesting Physician: Brit Reason for Consultation: SVT Pt evaluation today including: conversation w/ patient, conversation w/ family , physical exam, chart review, lab review, review of studies, review of inpatient medication list, conversation w/ attending History of Present Illness Patient is a 67-year-old woman with a history of SVT who noticed the onset of palpitations yesterday evening. The patient was performing her usual activities when she noticed the onset of palpitations and a sense of rapid heartbeat. She used a heart rate monitor at home and noticed that her heart rate was in the 170s. Based on her symptoms and high heart rate she felt that she should be evaluated went to [facility] Emergency Room. There she was discovered to have atrial fibrillation. She was admitted and eventually underwent conversion back to a sinus rhythm. She did not report associated symptoms such as dyspnea or chest discomfort. She has not report dizziness or lightheadedness. She feels that this was similar in character to other episodes of ST T she has had in the past. Generally she is an active individual who engages in routine exercise she monitors her heart rate in activity with a Fitbit. She generally has no symptoms of dyspnea or chest discomfort with exertion. She has not changed her level of activity lately. Past Medical/Surgical History Rheumatoid arthritis Asthma Ovarian cyst Palpitations SVT Vocal cord paralysis Past surgical history Bunion removal Surgery on the left hand Tracheostomy, emergent 1985 Foot amputation Family History FH: heart attack Patient does report a family history of atrial fibrillation Social History Smoking Status: Never Smoker History of Alcohol Use: Yes (1-2 GLASSES OF WINE DAILY) Review of Systems Per HPI. No recent fevers or chills. No additional constitutional symptoms. All Other Systems: Reviewed and Negative Allergies Coded Allergies: Penicillins (Verified Allergy, Severe, THROAT CLOSED-REQUIRED TRACH, ) Guaifenesin (Verified Allergy, Unknown, DIARRHEA, 05/29/18) Tramadol (Verified Adverse Reaction, Severe, LIGHTHEADEDNESS, GI, 05/29/18) Chlorhexidine (Verified Adverse Reaction, Intermediate, ITCHING, 05/29/18) Albuterol (Verified Adverse Reaction, Unknown, IRREGULAR HEARTBEAT, ) Dextromethorphan (Verified Adverse Reaction, Unknown, DIARRHEA, 05/29/18) Propoxyphene (Verified Adverse Reaction, Unknown, LIGHTHEADED, 05/29/18) Medications Current Inpatient Medications Medications (Trade) Dose Ordered Sig/Keerthi Route Start Time Stop Time Status Last Admin Dose Admin Diltiazem HCl 125 mg/Dextrose 125 ml @ 0 mls/hr Q0M PRN IV 05/29/18 11:00 06/28/18 10:59 05/29/18 11:01 5 MLS/HR Budesonide (Pulmicort Inhaler) 2 puffs DAILY PRN INH 05/29/18 11:45 06/28/18 11:44 Calcium/Vitamin D (Caltrate Plus Tab) 1 tab QPM PO 05/29/18 21:00 06/28/18 20:59 05/29/18 20:41 1 TAB Folic Acid (Folvite Tab) 1 mg QAM PO 05/30/18 09:00 06/29/18 08:59 05/30/18 08:10 1 MG Levalbuterol (Xopenex Hfa Inhaler) 2 puffs QID PRN INH 05/29/18 11:45 06/28/18 11:44 Metoprolol Succinate (Toprol Xl Tab) 25 mg QAM PO 05/30/18 09:00 06/29/18 08:59 05/30/18 08:10 25 MG Enoxaparin Sodium (Lovenox Inj) 50 mg Q12 SQ 05/29/18 14:15 06/28/18 14:14 05/30/18 10:16 50 MG Acetaminophen (Tylenol Tab) 650 mg Q4H PRN PO 05/29/18 11:45 06/28/18 11:44 Al Hydrox/Mg Hydrox/Simethicone (Maalox Max Susp) 15 ml Q4H PRN PO 05/29/18 11:45 06/28/18 11:44 Magnesium Hydroxide (Milk Of Magnesia Susp) 30 ml Q12H PRN PO 05/29/18 11:45 06/28/18 11:44 Zolpidem Tartrate (Ambien Tab) 5 mg HSZ PRN PO 05/29/18 11:45 06/28/18 11:44 Ondansetron HCl (Zofran Inj) 4 mg Q6H PRN IV 05/29/18 11:45 06/28/18 11:44 Morphine Sulfate (MoRPHine SULFATE INJ) 2 mg Q30M PRN IV 05/29/18 11:45 06/12/18 11:44 Polyethylene (Miralax Powder Packet) 17 gm DAILY PRN PO 05/29/18 11:45 06/28/18 11:44 Levothyroxine Sodium (Synthroid Tab) 50 mcg DAILYBB PO 05/30/18 06:00 06/29/18 06:59 05/30/18 05:48 50 MCG Losartan Potassium (coZAAR TAB) 100 mg QAM PO 05/31/18 09:00 06/30/18 08:59 Physical Exam Vital Signs Past 12 Hours Date Time Temp Pulse Resp B/P (MAP) Pulse Ox O2 Delivery O2 Flow Rate FiO2 05/30/18 11:50 37.1 165 20 165/119 (134) 96 Room Air 05/30/18 08:00 97 Room Air 05/30/18 07:22 36.8 70 16 163/95 (117) 97 Room Air 05/30/18 03:54 36.9 69 18 157/90 (112) 96 Room Air She is alert and oriented x3. Mood affect appear normal. She answered all questions appropriately. HEENT: Sclerae are anicteric. Pupils are equal and reactive to light and accommodation. Extraocular movements were intact. Neuro: Cranial nerves intact Neck: Examination of the submandibular region did not reveal any significant lymphadenopathy. Carotids are palpable bilaterally and free of bruits on auscultation. There was no evidence of jugular venous distention. The thyroid was not enlarged. Lungs: Lungs are clear to auscultation bilaterally. There are no rales wheezes or rhonchi. She has normal respiratory effort without use of accessory muscles. There is normal pulmonary excursion. Cardiac: The rhythm was regular. S1 and S2 were normal. There are no murmurs on examination. The PMI was not markedly displaced on palpation. Abdomen: The abdomen was soft and nontender. Extremities: Patient has bilateral radial pulses that are equal in intensity. There is no evidence cyanosis or clubbing but she does have marked arthritic changes in both hands. There was no evidence of significant peripheral edema bilaterally. Skin: There are no rashes noted on examination today. Data Laboratory Results: Last 24 Hours Test 05/29/18 14:21 05/30/18 06:38 Prothrombin Time 10.2 SECONDS Prothromb Time International Ratio 1.0 Activated Partial Thromboplast Time 27.6 SECONDS Partial Thromboplastin Ratio 1.1 White Blood Count 5.64 K/uL Red Blood Count 3.83 M/uL Hemoglobin 12.7 g/dL Hematocrit 37.7 % Mean Corpuscular Volume 98.4 fL Mean Corpuscular Hemoglobin 33.2 pg Mean Corpuscular Hemoglobin Concent 33.7 g/dl RDW Standard Deviation 46.7 fL RDW Coefficient of Variation 13.0 % Platelet Count 354 K/uL Mean Platelet Volume 8.7 fL Sodium Level 137 mmol/L Potassium Level 4.0 mmol/L Chloride Level 104 mmol/L Carbon Dioxide Level 28 mmol/L Anion Gap 5.0 mmol/L Blood Urea Nitrogen 8 mg/dl Creatinine 0.77 mg/dl Est Creatinine Clear Calc Drug Dose 60.5 ml/min Estimated GFR () 93.3 Estimated GFR (Non- 80.5 BUN/Creatinine Ratio 10.6 Random Glucose 92 mg/dl Calcium Level 9.0 mg/dl Magnesium Level 1.7 mg/dl Imaging: Chest x-ray the time of admission suggested left lung consolidation at the base EKG: Initial EKG was atrial fibrillation. Second EKG was sinus rhythm. Another EKG demonstrated SVT Telemetry reviewed: Atrial fibrillation transitioning to normal sinus rhythm. Normal sinus rhythm transitioning to supraventricular tachycardia Echocardiogram performed 02/16/2017: Preserved LV systolic function. Mild mitral regurgitation. Assessment & Plan 1. Atrial fibrillation: This may be related to her supraventricular tachycardia. There certainly episodes where a rapid supraventricular tachycardia can degenerate into atrial fibrillation. She also claims to have a strong family history of atrial fibrillation in did have a relative in her 40s with atrial fibrillation. At this point I suspect the cause is her SVT, but there is no way to prove this currently. We will treat her likely would anyone else with atrial fibrillation and recommend stroke prophylaxis in the form of systemic anticoagulation. Her chads Vasc score is at least 3. She had some concerns about taking anticoagulation and ibuprofen which she uses to control her arthritis pain. I did warn her against a combination of both and the associated increased risk of bleeding. 2. Supraventricular tachycardia: The patient did develop a supraventricular tachycardia this afternoon which required adenosine for termination. She has a history of an SVT which was characterizes an atrial tachycardia previously. This did appear to be a relatively long RP tachycardia, but could still be reentrant in nature. We discussed options for treatment including increasing her metoprolol to its prior dose of 50 mg daily, an alternative medication, no change in therapy or even catheter based treatment for a permanent cure. I think the patient went through an ablation that was successful she could be monitored for recurrence of atrial fibrillation, and in the absence of recurrence perhaps this could be considered a product of the SVT. 3. Mitral regurgitation: Mild
[2018-05-30] MEDS ORDERED: MGNO400 PO (16:25)
[2018-05-30] MEDS ORDERED: METO-452 PO (16:25)
[2018-05-30] MEDS ORDERED: METOPROLOL SUCC 25MG EXT REL TAB PO STA (16:25)
--- NOTE | 2018-05-30 16:35 | Discharge Instructions ---
Discharge Instructions Date of Service May 30, 2018. Admission Reason for Admission: Rapid Afib Discharge Discharge Diagnosis / Problem: Rapid atrial fibrillation, SVT Discharge Goals Goal(s): Improve disease control, Diagnostic testing, Therapeutic intervention Activity Recommendations Activity Limitations: as noted below Exercise/Sports Limitations: gradually increase as tolerated Shower/Bathe: no limitations Driving or Machine Use: no limitations . Instructions / Follow-Up Instructions / Follow-Up You were admitted with a rapid heartbeat that is irregular called atrial fibrillation. You then converted to a regular rhythm, but later went into a different rapid heartbeat called supraventricular tachycardia (SVT). This was treated with medication called adenosine and went back into a normal rhythm. After much discussion between the chief financial officer, yourself, and the hospitalist, you made the decision to increase the dose of your metoprolol to 50 mg once daily for now. In the future, if this recurs, you can opt to have an ablation to try to permanently prevent SVT from occurring. If atrial fibrillation recurs, at that point you should be started on a blood thinner. Please follow-up with your PCP within 1-2 weeks as scheduled for you. Please follow-up with cardiology within 1-2 weeks as scheduled for you. Please continue follow-up with the pantograph setter for your recent lung infection. Current Hospital Diet Patient's current hospital diet: AHA Diet (Heart Healthy) Discharge Diet Recommended Diet: AHA Diet (Heart Healthy) Procedures Procedures Performed: Echocardiogram Chest x-ray Pending Studies Studies pending at discharge: no Laboratory Results Lipid Panel Test 05/21/18 11:30 Range/Units Triglycerides Level 84 0-150 mg/dl Cholesterol Level 172 0-200 mg/dl HDL Cholesterol 86 mg/dl Cholesterol/HDL Ratio 2.0 LDL Cholesterol, Calculated 69 mg/dl Medical Emergencies . Who to Call and When: Medical Emergencies: If at any time you feel your situation is an emergency, please call 911 immediately. . Non-Emergent Contact Non-Emergency issues call your: Primary Care Provider, [employer] Technical Officer Call Non-Emergent contact if: temperature is above 101, you have any medication questions . . "Provider Documentation" section prepared by Karine Perea. .
--- NOTE | 2018-05-30 16:48 | Discharge Summary ---
Discharge Summary Date of Service May 30, 2018. Discharge Summary Admission Date: May 29, 2018 at 11:46 Discharge Date: May 30, 2018 Discharge Disposition: Home Principal Diagnosis: Rapid atrial fibrillation, SVT Problems/Secondary Diagnoses: HTN Rheumatoid arthritis Hypomagnesemia Hypothyroidism Rheumatoid lung disease Osteopenia Procedures: Echocardiogram-normal Chest [id number] left lower lobe infiltrate compared to previous, chronic interstitial thickening Consultations: Cardiology Medication Reconciliation New Medications: Magnesium Oxide (Magnesium-Oxide) 400 Mg Tab 400 MG PO DAILY for 30 Days OTC Metoprolol Succinate (Toprol Xl) 50 Mg Tab 50 MG PO DAILY, #30 TAB Continued Medications: Calcium/Vitamin D (Os-Loco 500 Plus D) Tab 1 TAB PO QPM, TAB Fluticasone Propionate (Nasal) (Cvs Fluticasone Propriona) 50 Mcg/Act Spr 1 SPRAY RAMILA DAILY PRN for PRN Folic Acid (Folvite) 1 Mg Tab 1 MG PO QAM, TAB Ibuprofen (Ibuprofen) 600 Mg Tab 600 MG PO TID PRN for Pain Levothyroxine Sodium (Levothyroxine Sodium) 50 Mcg Tab 50 MCG PO QAM Losartan Potassium (Cozaar) 100 Mg Tab 100 MG PO QAM, TAB Methotrexate (Methotrexate) 2.5 Mg Tab 5 MG PO WK, TAB PT TAKES ON SUDAY Methylprednisolone (Medrol) 4 Mg Tab 4 MG PO DIRECTED PRN for PRN Tiotropium [place] (Spiriva Handihaler) 5 Puff/90 Mcg Aerp 2 PUFF INH DAILY PRN for SOB/Wheezing Discontinued Medications: Doxycycline Monohydrate (Monodox) 100 Mg Cap 200 MG PO BID Metoprolol Succ (Toprol Xl) (Toprol-Xl) 25 Mg Tabcr 25 MG PO QAM Discharge Exam After admission, the patient converted to normal sinus rhythm on the way to the telemetry floor from the emergency room. She then went into SVT with a rate in the 160s in the middle of the day. Valsalva maneuvers and carotid massage were attempted with no success. She was given adenosine and converted to normal sinus rhythm. She did not have any chest pain or lightheadedness or shortness of breath or any other symptoms associated with the SVT and was quite stable. She is otherwise feeling well. Does have a hoarse voice which is improved and she has not had a recent course of antibiotics for bronchitis with doxycycline. Review of Systems: Constitutional: No fever, No chills Eyes: No problem reported ENT: + problem reported (Hoarse voice), No sore throat Respiratory: + cough Cardiovascular: No problem reported Abdomen: No problem reported Musculoskeletal: + joint pain (Chronic) Genitourinary - Female: No problem reported Neurologic: No problem reported Psychiatric: No problem reported Endocrine: No problem reported Hematologic / Lymphatic: No problem reported Integumentary: No problem reported Physical Exam: General Appearance: no apparent distress, + thin Eyes: normal inspection, EOMI, sclerae normal ENT: hearing grossly normal, pharynx normal Neck: supple, trachea midline Respiratory/Chest: no respiratory distress, no accessory muscle use, + crackles (Mild at the left base) Cardiovascular: no edema, no murmur, normal peripheral pulses, + pertinent finding (Initially with rapid regular rhythm in the 160s, after adenosine, had a regular rate and rhythm) Abdomen / GI: normal bowel sounds, non tender, soft, no organomegaly, no pulsatile mass Extremities: no pedal edema, + pertinent finding (Ulnar deviation of all the fingers with enlarged and tender joints in the hands) Neurologic/Psychiatric: alert, normal mood/affect, oriented x 3 Skin: normal color, warm/dry, no rash Lymphatic: no adenopathy Hospital Course This patient is a 67 y/o female with a history of RA on MTX and ibuprofen, rheumatoid lung disease, HTN, hypothyroidism, 2 episodes of SVT (2016,2018). She was recently treated for a hoarse voice and a productive cough with doxycycline by her technical report writer. On the day of admission she developed a racing HR and presented to the ER. The pt denied CP, SOB or lightheadedness. She was found to be with rapid atrial fibrillation with a rate of 140-150 upon arrival to the hospital. After admission, the patient converted to normal sinus rhythm on the way to the telemetry floor from the emergency room. She then went into SVT with a rate in the 160s in the middle of the day. Valsalva maneuvers and carotid massage were attempted with no success. She was given adenosine and converted to normal sinus rhythm. Consultation was made with blood or blood bank technician who is present with giving the adenosine. She was offered choices for treatment including increasing metoprolol dose only, doing nothing different than waiting to see if she has recurrence of SVT, or planning for an ablation of her SVT. She was initially placed on full dose Lovenox for anticoagulation. Cardiology believes that most likely, her SVT triggered her atrial fibrillation. The patient opted to not take any anticoagulation at this time as she prefers to be able to take her ibuprofen regularly throughout the day as this is the only combination along with her methotrexate that has given her relief from her long-standing RA. If atrial fibrillation recurs, she would be agreeable at that time to start anticoagulation. And also, if SVT or atrial fibrillation recurs, she prefers to opt for an ablation at that time. Echocardiogram was normal. Of note, her TSH was normal on outpatient labs from 1 week ago. We will increase her Toprol-XL to 50 mg once daily and she will follow-up closely with blood or blood bank technician as an outpatient. She will continue her other home medications and we will add magnesium oxide 4 mg p.o. once daily as she had a mildly low magnesium level on admission has had some leg cramps recently. Her chest x-ray showed a possible developing infiltrate in the left lower lobe compared to previous x-ray from several months ago. She has been following recently with pulmonology and should continue to follow her chest x-ray until resolution. She was stable for discharge to home. Total Time Spent: Greater than 30 minutes This includes examination of the patient, discharge planning, medication reconciliation, and communication with other providers. Discharge Instructions Please refer to the electronic Patient Visit Report (Discharge Instructions) for additional information. Follow-Up With PCP within 1-2 weeks With cardiology within 1-2 weeks With oncology as routinely scheduled Additional Copies To RV. Harris MD; Skinny Dejesus DO; Anand Walden MD
[2018-05-31] MEDS ORDERED: LOSARTAN POTASSIUM 50 MG TAB PO SCH (09:00)
== END 2018-05-30 17:25 | disposition home or self-care (01) | DRG 310 ==
LOC: C.EDB 10:28 → C.2T 11:46 → ENRESERV 12:28
PROVIDERS: ADMIT Internal Medicine; ATTEND Family Medicine
DX: I48.91 Unspecified atrial fibrillation (principal); I47.1 Supraventricular tachycardia; I34.0 Nonrheumatic mitral (valve) insufficiency; E83.42 Hypomagnesemia; J02.9 Acute pharyngitis, unspecified; R09.89 Other specified symptoms and signs involving the circulatory and respiratory systems; I10 Essential (primary) hypertension; M05.10 Rheumatoid lung disease with rheumatoid arthritis of unspecified site; J45.909 Unspecified asthma, uncomplicated; E03.9 Hypothyroidism, unspecified; M85.80 Other specified disorders of bone density and structure, unspecified site; Z82.49 Family history of ischemic heart disease and other diseases of the circulatory system; Z79.899 Other long term (current) drug therapy; Z88.0 Allergy status to penicillin; Z88.5 Allergy status to narcotic agent; Z88.8 Allergy status to other drugs, medicaments and biological substances